=== PATIENT | female | born 1955 | race Caucasian/White ===

== ENCOUNTER → 2017-04-16 | Outpatient (CLI) | payer OTHER ==
[~2017-04-16] MED LIST: ACET325 PO; ACET500 PO; ALL DAY ALLERGY10 MG PO; ALLER-TEC D 5-1 EACH PO; ALLER-TEC PO; AMIT10; AMIT25 PO; AMOCLA875 PO; ASPI325 PO; ASPI81CH PO; BLOOD PRESSURE MED; CARV25 PO; CLON.1 PO; CLON.2 PO; CLOP75; CYCL10 PO; Colace100 MG PO; DILT120 PO; DILT30 PO; DILTIAZEM 24HR120 MG PO; ELIQUIS5 MG; ERGO50000 PO; FISH PO; FISH1000 PO; FLAX PO; FLAXSEED PO; FLUC100; Flagyl500 MG PO; HYDACE5 PO; HYDACE7.5 PO; IBUP800 PO; LISI20 PO; LISI5 PO; LUKAID GLA1 GM/1 ML PO; Lisinopril2.5 MG PO; METO50; NAPR500 PO; Naprosyn500 MG PO; OMEP20ER PO; OMEP40CA12 PO; OXYC5 PO; PRAV20 PO; PROM25 PO; Percocet 5-3251 EACH PO; RXLORA1 PO; RXPROM25 PO; Stool Softener100 MG PO; TRAM50 PO; VENL37.5ER PO; XARELTO20 MG PO; Zofran Odt8 MG SL; [UNRECOGNIZED DRUG - OTHER] PO; [UNRECOGNIZED DRUG - OTHER] PO; [UNRECOGNIZED DRUG - OTHER] PO
[2017-04-16 18:55] LABS: BASOPHILS ABSOLUTE AUTO 0.03 K/mm3 (0.00-0.23); BASOPHILS PERCENT AUTO 0 % (0-2); EOSINOPHILS ABSOLUTE AUTO 0.24 K/mm3 (0.00-0.68); EOSINOPHILS PERCENT AUTO 3 % (0-6); Hematocrit 35.5 % (33.0-51.0); Hemoglobin 11.8 g/dL (11.5-16.0); IMMATURE GRAN ABSOLUTE AUTO 0.01 K/mm3 (0.00-0.10); IMMATURE GRAN PERCENT AUTO 0 % (0-1); LYMPHOCYTES ABSOLUTE AUTO 2.18 K/mm3 (0.84-5.20); LYMPHOCYTES PERCENT AUTO 22 % (21-46); MONOCYTES ABSOLUTE AUTO 0.49 K/mm3 (0.16-1.47); MONOCYTES PERCENT AUTO 5 % (4-13); Mean Corpuscular HGB 30.3 pg (26.0-34.0); Mean Corpuscular HGB Conc 33.2 g/dL (31.5-36.5); Mean Corpuscular Volume 91 fL (80-100); Mean Platelet Volume 11.2 fL (9.1-12.4); NEUTROPHILS ABSOLUTE AUTO 6.79 K/mm3 (1.96-9.15); NEUTROPHILS PERCENT AUTO 70 % (41-73); Platelet Count 356 K/mm3 (150-400); RDW Coefficient Variation 13.9 % (11.7-14.2); RDW Standard Deviation 46.1 fL (35.1-46.3); Red Blood Cell Count 3.89 M/mm3 (3.80-5.20); White Blood Cell Count 9.74 K/mm3 (4.00-11.30)
[2017-04-16 19:15] LABS: Free Thyroxine 1.03 ng/dL (0.70-1.60); LDL/HDL RATIO 1.1; Very Low Density Lipoprot Chol 20 mg/dL (6-32)
[2017-04-16 19:19] LABS: Alanine Aminotransfer (ALT/SGP 63 U/L (12-78); Alk Phos 164 U/L (50-136); Anion Gap 9 mmol/L (6-16); Aspartate Aminotrans (AST/SGOT 31 U/L (12-37); Bilirubin, Total 0.6 mg/dL (0.1-1.0); Blood Urea Nitrogen 25 mg/dL (8-24); Bun/Creatinine Ratio 25.3 (12.0-20.0); CHOL/HDL RATIO 2.4; CO2, Blood 26 mmol/L (21-32); Calcium, Blood 9.6 mg/dL (8.5-10.1); Chloride, Blood 103 mmol/L (98-108); Cholesterol 219 mg/dL (50-200); Creatinine, Blood 0.99 mg/dL (0.40-1.00); Globulin, Blood 4.2 g/dL (2.2-4.0); Glomerular Filtration Rate >60 (60-); Glucose, Blood 94 mg/dL (70-99); HDL Cholesterol 93 mg/dL (>39); Low Density Lipoprotein Chol 106 mg/dL (0-110); Potassium, Blood 4.4 mmol/L (3.5-5.5); Sodium, Blood 138 mmol/L (136-145); Thyroid Stimulating Hormone 0.856 uIU/mL (0.360-4.800); Total Protein, Blood 8.2 g/dL (6.4-8.2); Triglycerides 100 mg/dL (30-160)
== END | disposition home or self-care (01) ==
LOC: LAB 09:27
PROVIDERS: Nurse Practitioner Adult Health
DX: D64.9 Anemia, unspecified (principal); I10 Essential (primary) hypertension; I48.0 Paroxysmal atrial fibrillation; E78.5 Hyperlipidemia, unspecified
CPT/HCPCS: 80053; 80061; 84439; 84443; 85025

== ENCOUNTER → 2017-11-09 | Outpatient (CLI) | payer OTHER ==
[2017-11-09 18:01] LABS: BASOPHILS ABSOLUTE AUTO 0.03 K/mm3 (0.00-0.23); BASOPHILS PERCENT AUTO 1 % (0-2); EOSINOPHILS ABSOLUTE AUTO 0.26 K/mm3 (0.00-0.68); EOSINOPHILS PERCENT AUTO 4 % (0-6); Hemoglobin 11.5 g/dL (11.5-16.0); IMMATURE GRAN ABSOLUTE AUTO 0.01 K/mm3 (0.00-0.10); IMMATURE GRAN PERCENT AUTO 0 % (0-1); LYMPHOCYTES ABSOLUTE AUTO 1.83 K/mm3 (0.84-5.20); LYMPHOCYTES PERCENT AUTO 31 % (21-46); MONOCYTES ABSOLUTE AUTO 0.35 K/mm3 (0.16-1.47); MONOCYTES PERCENT AUTO 6 % (4-13); Mean Corpuscular HGB 30.1 pg (26.0-34.0); Mean Corpuscular HGB Conc 33.8 g/dL (31.5-36.5); Mean Corpuscular Volume 89 fL (80-100); Mean Platelet Volume 12.1 fL (9.1-12.4); NEUTROPHILS ABSOLUTE AUTO 3.39 K/mm3 (1.96-9.15); NEUTROPHILS PERCENT AUTO 58 % (41-73); Platelet Count 275 K/mm3 (150-400); RDW Coefficient Variation 13.6 % (11.7-14.2); RDW Standard Deviation 44.6 fL (35.1-46.3); Red Blood Cell Count 3.82 M/mm3 (3.80-5.20); White Blood Cell Count 5.87 K/mm3 (4.00-11.30)
[2017-11-09 19:56] LABS: Albumin, Blood 4.1 g/dL (3.4-5.0); Albumin/Globulin Ratio 1.2 (0.8-1.8); Bilirubin, Total 0.3 mg/dL (0.1-1.0); Bun/Creatinine Ratio 19.1 (12.0-20.0); Calcium, Blood 9.1 mg/dL (8.5-10.1); Creatinine, Blood 1.15 mg/dL (0.40-1.00); Globulin, Blood 3.4 g/dL (2.2-4.0); Potassium, Blood 4.5 mmol/L (3.5-5.5); Total Protein, Blood 7.5 g/dL (6.4-8.2)
== END ==
LOC: LAB 14:11 → LAB SHORT 14:11
PROVIDERS: Nurse Practitioner Adult Health
DX: M19.071 Primary osteoarthritis, right ankle and foot (principal); R74.8 Abnormal levels of other serum enzymes
CPT/HCPCS: 80053; 85025

== ENCOUNTER 2018-06-01 10:14 | Day surgery (SDC) | payer OTHER ==
[~2018-06-01] VITALS: Ht 160 cm; Wt 92.1 kg
[2018-06-01] MEDS ORDERED: ATOR10 (10:30)
[2018-06-01] MEDS ORDERED: ATOR10 PO (10:30)
== END 2018-06-01 11:38 | disposition home or self-care (01) ==
LOC: ORSCSDS 10:14
PROVIDERS: Anesthesiology
PROC: 3E0R33Z Introduction of Anti-inflammatory into Spinal Canal, Percutaneous Approach (ICD-10-PCS; principal; 2018-06-01 11:15)
DX: M54.16 Radiculopathy, lumbar region (principal); M48.061 Spinal stenosis, lumbar region without neurogenic claudication; I10 Essential (primary) hypertension; E78.00 Pure hypercholesterolemia, unspecified; E78.5 Hyperlipidemia, unspecified; Z87.891 Personal history of nicotine dependence; Z79.01 Long term (current) use of anticoagulants; Z79.899 Other long term (current) drug therapy
CPT/HCPCS: J1040

== ENCOUNTER → 2018-06-08 | Outpatient (CLI) | payer OTHER ==
[~2018-06-08] MED LIST changes: +ATOR10; +ATOR10 PO
[2018-06-08 19:42] LABS: Albumin, Blood 4.1 g/dL (3.4-5.0); Albumin/Globulin Ratio 1.1 (0.8-1.8); Bilirubin, Total 0.7 mg/dL (0.1-1.0); Calcium, Blood 8.4 mg/dL (8.5-10.1); Globulin, Blood 3.7 g/dL (2.2-4.0); Potassium, Blood 4.4 mmol/L (3.5-5.5); Total Protein, Blood 7.8 g/dL (6.4-8.2)
== END ==
LOC: LAB 17:33 → LAB SHORT 17:33
PROVIDERS: Nurse Practitioner Family
DX: I10 Essential (primary) hypertension (principal)
CPT/HCPCS: 80053

== ENCOUNTER 2018-06-26 15:47 | Inpatient (IN) | payer OTHER ==
[~2018-06-26] VITALS: Ht 160 cm; Wt 88.1 kg
[2018-06-26 16:33] LABS: BASOPHILS ABSOLUTE AUTO 0.03 K/mm3 (0.00-0.23); BASOPHILS PERCENT AUTO 0 % (0-2); EOSINOPHILS ABSOLUTE AUTO 0.04 K/mm3 (0.00-0.68); EOSINOPHILS PERCENT AUTO 0 % (0-6); Hematocrit 34.9 % (33.0-51.0); Hemoglobin 11.8 g/dL (11.5-16.0); IMMATURE GRAN ABSOLUTE AUTO 0.05 K/mm3 (0.00-0.10); IMMATURE GRAN PERCENT AUTO 0 % (0-1); LYMPHOCYTES ABSOLUTE AUTO 2.07 K/mm3 (0.84-5.20); LYMPHOCYTES PERCENT AUTO 16 % (21-46); MONOCYTES ABSOLUTE AUTO 0.84 K/mm3 (0.16-1.47); MONOCYTES PERCENT AUTO 7 % (4-13); Mean Corpuscular HGB 31.7 pg (26.0-34.0); Mean Corpuscular HGB Conc 33.8 g/dL (31.5-36.5); Mean Corpuscular Volume 94 fL (80-100); Mean Platelet Volume 11.7 fL (9.1-12.4); NEUTROPHILS ABSOLUTE AUTO 9.73 K/mm3 (1.96-9.15); NEUTROPHILS PERCENT AUTO 76 % (41-73); Platelet Count 234 K/mm3 (150-400); RDW Coefficient Variation 13.7 % (11.7-14.2); RDW Standard Deviation 46.7 fL (35.1-46.3); Red Blood Cell Count 3.72 M/mm3 (3.80-5.20); White Blood Cell Count 12.76 K/mm3 (4.00-11.30)
[2018-06-26 16:51] LABS: International Normalized Ratio 0.97; Prothrombin Time Results 10.3 Sec (9.7-11.5)
[2018-06-26 16:55] LABS: Albumin/Globulin Ratio 1.1 (0.8-1.8); Bilirubin, Total 0.3 mg/dL (0.1-1.0); Bun/Creatinine Ratio 22.9 (12.0-20.0); Calcium, Blood 8.5 mg/dL (8.5-10.1); Creatinine, Blood 1.09 mg/dL (0.40-1.00); Globulin, Blood 3.6 g/dL (2.2-4.0); Potassium, Blood 4.1 mmol/L (3.5-5.5); Total Protein, Blood 7.6 g/dL (6.4-8.2)
[2018-06-26] MEDS ORDERED: ELIQUIS5 MG PO (16:56)
[2018-06-26 17:18] LABS: Troponin I 0.956 ng/mL (0.000-0.040)
[2018-06-27 01:30] LABS: Mean Platelet Volume 11.6 fL (9.1-12.4); Platelet Count 231 K/mm3 (150-400)
[2018-06-27 01:45] LABS: International Normalized Ratio 0.97; Prothrombin Time Results 10.3 Sec (9.7-11.5)
[2018-06-27 07:19] LABS: BASOPHILS ABSOLUTE AUTO 0.03 K/mm3 (0.00-0.23); BASOPHILS PERCENT AUTO 0 % (0-2); EOSINOPHILS ABSOLUTE AUTO 0.06 K/mm3 (0.00-0.68); EOSINOPHILS PERCENT AUTO 1 % (0-6); Hematocrit 36.2 % (33.0-51.0); Hemoglobin 11.5 g/dL (11.5-16.0); IMMATURE GRAN ABSOLUTE AUTO 0.02 K/mm3 (0.00-0.10); IMMATURE GRAN PERCENT AUTO 0 % (0-1); LYMPHOCYTES PERCENT AUTO 25 % (21-46); MONOCYTES ABSOLUTE AUTO 0.54 K/mm3 (0.16-1.47); MONOCYTES PERCENT AUTO 6 % (4-13); Mean Corpuscular HGB 30.9 pg (26.0-34.0); Mean Corpuscular HGB Conc 31.8 g/dL (31.5-36.5); Mean Platelet Volume 11.8 fL (9.1-12.4); NEUTROPHILS ABSOLUTE AUTO 6.09 K/mm3 (1.96-9.15); NEUTROPHILS PERCENT AUTO 67 % (41-73); Platelet Count 195 K/mm3 (150-400); RDW Standard Deviation 49.4 fL (35.1-46.3); Red Blood Cell Count 3.72 M/mm3 (3.80-5.20); White Blood Cell Count 9.04 K/mm3 (4.00-11.30)
[2018-06-27 07:31] LABS: Mean Corpuscular Volume 97 fL (80-100)
[2018-06-27 07:40] LABS: Alanine Aminotransfer (ALT/SGP 27 U/L (12-78); Albumin, Blood 3.7 g/dL (3.4-5.0); Albumin/Globulin Ratio 1.1 (0.8-1.8); Alk Phos 76 U/L (50-136); Anion Gap 9 mmol/L (6-16); Aspartate Aminotrans (AST/SGOT 15 U/L (12-37); Bilirubin, Total 0.8 mg/dL (0.1-1.0); Blood Urea Nitrogen 21 mg/dL (8-24); Bun/Creatinine Ratio 22.3 (12.0-20.0); CO2, Blood 21 mmol/L (21-32); Calcium, Blood 8.4 mg/dL (8.5-10.1); Chloride, Blood 112 mmol/L (98-108); Creatinine, Blood 0.94 mg/dL (0.40-1.00); Globulin, Blood 3.3 g/dL (2.2-4.0); Glomerular Filtration Rate >60 (60-); Glucose, Blood 103 mg/dL (70-99); Potassium, Blood 4.4 mmol/L (3.5-5.5); Sodium, Blood 142 mmol/L (136-145)
--- NOTE | 2018-06-27 12:49 | NUR ---
ECHOCARDIOGRAM COMPLETED
--- NOTE | 2018-06-27 16:40 | NUR ---
PATIENT ADMITTED FROM ER FOR CHEST PAIN. PATIENT HAS NOT REQUESTED PAIN MEDS THIS SHIFT. SHE IS ALERT AND ORIENTED AND INDEPENDENT IN THE ROOM. SHE HAS RESTED MOST OF THE SHIFT. CALL LIGHT WITHIN REACH.
--- NOTE | 2018-06-28 06:35 | NUR ---
SHIFT SUMMARY PT A/O. INDEPENDENT TO BA. NO C/O CP JUST SAYS SHE HAS SOME CP OCCASIONALLY C ACTIVITY. ON HEPARIN DRIP. HR A FIB IN 120'S DR CHILDS ORDERED PRN METOPROLOL 15MG PO FOR HR >110. SHE GOT A DOSE AND HR CAME DOWN TO A FIB 102. REFUSED SYED HOSE. SHE WAS ABLE TO SLEEP T/O NOC. CALL LIGHT IN REACH
--- NOTE | 2018-06-28 08:00 | NUR ---
PATIENT HR CLIMBING INTO THE 180'S AND SHE IS SOB. A-FIB ON TELEMETRY. NOTIFIED DR. VEGAS AND DR. QUILES WHO ORDERED AND AMIODORONE BOLUS AND GTT. CHARGE NURSE MARISELA NOTIFIED AND PATIENT WILL BE TRANSFERRING TO ICU 1.
--- NOTE | 2018-06-28 08:35 | NUR ---
PATIENT TRANSFERRED TO ICU PER DR. QUILES ORDER. REPORT GIVEN TO TEE MONIQUE.
--- NOTE | 2018-06-28 08:50 | NUR ---
ASSUMED CARE: REPORT RECIEVED FROM TEE RAMIREZ. PT IS ALERT AND ORIENTED. HR IN 130S. STATES SHE FEELS SOB BUT NO CP. FRIEND AT BEDSIDE. AWAITING AMIODORONE GTT FROM PHARMACY.
--- NOTE | 2018-06-28 15:50 | NUR ---
DR HAND NOTIFIED DUE TO PT BEING UNABLE TO VOID. BLADDER SCAN REVEALS 400 IN. ORDER FOR STRAIGHT CATH ONE TIME.
--- NOTE | 2018-06-28 18:06 | NUR ---
SHIFT SUMMARY: PT RESTING IN BED, SON AT BEDSIDE. PLAN IS FOR ANGIO TOMORROW. PT EATING DINNER. AMIODORONE RUNNING, RATE CHECKED WITH MONIKA OLIVEIRA. HR AFIB IN 80S-90S UNLESS ACTIVITY, THEN JUMPS INTO 120S. STATES SHE HAD OCCASIONAL CHEST PAIN/PRESSURE. DENIES PAIN OR CONCERNS AT THIS TIME.
--- NOTE | 2018-06-28 21:46 | NUR ---
PATIENT RESTING IN BED NO C/O CHEST PAIN AT THIS TIME, C/O LOW BACK PAIN GIVEN TYLENOL WITH VERY LITTLE RELIEF. PATIENT UP AMB TO TOILET UNABLE TO URINATE, C/O SLIGHT SOB WITH ACTIVITY AND HR UP TO 110'S PATIENT VERBALIZED THE RATE WAS HIGHER EARLIER TODAY. AMIODARONE IV DRIP AND HEPARIN DRIP CONTINUE. HEPARIN DRIP ADJUSTED PER PHARMACY SEE EMAR.
[2018-06-29 05:31] LABS: BASOPHILS ABSOLUTE AUTO 0.02 K/mm3 (0.00-0.23); BASOPHILS PERCENT AUTO 0 % (0-2); EOSINOPHILS PERCENT AUTO 2 % (0-6); Hematocrit 39.3 % (33.0-51.0); Hemoglobin 13.1 g/dL (11.5-16.0); IMMATURE GRAN ABSOLUTE AUTO 0.01 K/mm3 (0.00-0.10); IMMATURE GRAN PERCENT AUTO 0 % (0-1); LYMPHOCYTES ABSOLUTE AUTO 2.19 K/mm3 (0.84-5.20); LYMPHOCYTES PERCENT AUTO 32 % (21-46); MONOCYTES ABSOLUTE AUTO 0.43 K/mm3 (0.16-1.47); MONOCYTES PERCENT AUTO 6 % (4-13); Mean Corpuscular HGB 30.5 pg (26.0-34.0); Mean Corpuscular HGB Conc 33.3 g/dL (31.5-36.5); Mean Platelet Volume 11.7 fL (9.1-12.4); NEUTROPHILS PERCENT AUTO 59 % (41-73); Platelet Count 233 K/mm3 (150-400); RDW Coefficient Variation 13.3 % (11.7-14.2); RDW Standard Deviation 44.7 fL (35.1-46.3); White Blood Cell Count 6.75 K/mm3 (4.00-11.30)
[2018-06-29 05:33] LABS: Mean Corpuscular Volume 91 fL (80-100)
[2018-06-29 05:50] LABS: Albumin, Blood 3.7 g/dL (3.4-5.0); Anion Gap 8 mmol/L (6-16); Blood Urea Nitrogen 20 mg/dL (8-24); Bun/Creatinine Ratio 19.4 (12.0-20.0); CO2, Blood 23 mmol/L (21-32); Calcium, Blood 8.6 mg/dL (8.5-10.1); Chloride, Blood 108 mmol/L (98-108); Creatinine, Blood 1.03 mg/dL (0.40-1.00); Glomerular Filtration Rate 57 (60-); Glucose, Blood 152 mg/dL (70-99); Phosphorus, Blood 4.1 mg/dL (2.5-4.9); Potassium, Blood 3.9 mmol/L (3.5-5.5); Sodium, Blood 139 mmol/L (136-145)
--- NOTE | 2018-06-29 07:23 | NUR ---
SUMMARY PATIENT RESTING IN BED NO C/O CHEST PAIN. C/O LOW BACK PAIN DUE TO BEING IN BED, MEDICATED WITH TYLENOL X1. BUSINESS SERVICES ANALYST CONTINUES TO SHOW AFIB WITH HR 90'S AMIODARONE CONTINUES AT 0.5MG/HR. PATIENT UP TO TOILET HAVING DIFFICULTY VOIDING. PATIENT VERBALIZED THAT IT FELT EASIER TO VOID THE LAST TIME UP TO TOILET. PATIENT AMBULATING IN ROOM WITH MIN ASSIST
--- NOTE | 2018-06-29 08:00 | NUR ---
INITIAL ASSESSMENT PATIENT SLEEPING SOUNDLY IN BED UPON ENTERING ROOM. PATIENT ALERT AND ORIENTED X 4, AFEBRILE. PATIENT STATES THAT SHE HAS SOME DISCOMFORT IN HER L WRIST AND THAT IT IS A OLD IV SITE. PATIENT STATES THAT PAIN IS MANAGEABLE AND REQUESTS AN ICE PACK FOR SITE. PATIENT STEADY ON FEET; SBA FOR LINES/ CORDS. PATIENT SATTING WELL ON RA. LUNGS CLEAR THROUGHOUT. PATIENT IN A. FIB. HR 90, BP STABLE. PULSES STRONG. NO EDEMA NOTED. GI WNL. LAST BM YESTERDAY. PATIENT VOIDING YELLOW URINE. PATIENT STATES THAT SHE HAS BEEN HAVING SOME RETENTION AND PROBLEMS TAKING LONGER THAN USUAL TO VOID HERE. AMIODARONE INFUSING AT 0.5 MG/ MINUTE, HEPARIN INFUSING AT 21 UNITS/ KG/ HOUR. BED LOW, CALL LIGHT IN REACH. WILL CONTINUE TO MONITOR PATIENT FREQUENTLY THROUGHOUT SHIFT.
--- NOTE | 2018-06-29 12:46 | NUR ---
PATIENT COMPLAINED OF CHEST PAIN, DESCRIBED SHARP AND TIGHT FEELING, AFTER NURSE TRIED TO PLACE IV. NURSE SPOKE WITH DR. HAND AT 1107 AND INFORMED OF PATIENT COMPLAINT. ORDERED PRN NITRO. PATIENT GIVEN PRN NITRO X [address] HAND CALLED BACK AND INFORMED. DR. HAND STATED TO CALL DR. QUILES AND INFORM ABOUT CHEST PAIN, THAT THERE WAS NO RELIEF WITH PRN NITRO X 3 DOSES AND QUESTION WHEN PATIENT WOULD BE GOING TO FLEX O WRITER OPERATOR TODAY. DR. QUILES CALLED AT 1205. RNJUANITA ANSWERED FOR DR. QUILES AND CALLED BACK SAYING THAT DR. QUILES WAS IN THE MIDDLE OF A PROCEDURE AND TO REFER BACK TO DR. HAND. DR. HAND CALLED ONCE AGAIN AND INFORMED THAT NURSE UNABLE TO GET IN TOUCH WITH CARDIOLOGY. ORDERED FOR PRN ATIVAN TO BE GIVEN. PATIENT REPORTS THAT CHEST PAIN IS LESSENING AND IS NOW A 4/ 10 INSTEAD OF A 6/ 10. WILL CONTINUE TO MONITOR.
--- NOTE | 2018-06-29 12:52 | NUR ---
PATIENT RESTING QUIETLY IN BED. PATIENT REMAINS AFEBRILE. PATIENT STATES THAT CHEST PAIN IS IMPROVING AFTER PRN ATIVAN. PATIENT REMAINS SATTING WELL ON RA. HR 95. BP STABLE. PATIENT REMAINS IN A. FIB. GI REMAINS WNL. NO CHANGE IN . NO CHANGE IN SKIN. PATIENT REMAINS NPO FOR BOWSTRING MAKER PROCEDURE. WILL CONTINUE TO MONITOR.
--- NOTE | 2018-06-29 13:37 | NUR ---
PATIENT REPORTS "CHEST PAIN IS GONE". PATIENT BEING TAKEN TO FURNACE ROASTER AT THIS TIME.
--- NOTE | 2018-06-29 14:48 | NUR ---
PATIENT BACK FROM GRAPHICS SOFTWARE ENGINEER. REPORT RECEIVED THAT THERE WERE NO FINDINGS. TR BAND IN PLACE TO R WRIST WITH 8 CC OF AIR INSTILLED. PATIENT HAS NO COMPLAINTS. HEPARIN REMAINS INFUSING. WILL CONTINUE TO MONITOR.
--- NOTE | 2018-06-29 17:01 | NUR ---
PATIENT RESTING QUIETLY IN BED. PATIENT HAS NO COMPLAINTS OF PAIN OR DISCOMFORT. PATIENT AFEBRILE. VSS. 2 CC AIR LET OUT OF TR BAND. SITE REMAINS WNL- NO BLEEDING, BRUISING, OR HEMATOMA NOTED. NO OTHER ACUTE CHANGES TO NOTE ON AT THIS TIME. WILL CONTINUE TO MONITOR.
--- NOTE | 2018-06-29 18:26 | NUR ---
2 CC AIR REMOVED FROM TR BAND- 4 TOTAL IN BAND AT THIS TIME. SITE WNL. WILL CONTINUE TO MONITOR.
--- NOTE | 2018-06-29 18:48 | NUR ---
SHIFT SUMMARY PATIENT REMAINED ALERT AND ORIENTED T/O SHIFT. PATIENT REMAINED AFEBRILE. PATIENT COMPLAINED OF SOME DISCOMFORT IN L WRIST WHERE OLD IV WAS DURING SHIFT. PATIENT ALSO COMPLAINED OF "SHARP, TIGHTENING" CHEST PAIN OT DURING SHIFT- NITRO GIVEN X 3 WITH NO RELIEF- PATIENT REPORTED RELIEF WITH PRN IV ATIVAN. PATIENT SBA TO TOILET. PATIENT REMAINED SATTING WELL ON RA. LUNGS REMAINED CLEAR T/O. PATIENT REMAINED IN A. FIB, HR MOSTLY 80S TO 90S. HR INCREASED UP TO THE 130S AT TIMES WHEN AMBULATING TO THE TOILET. BP REMAINED STABLE. PULSES REMAINED STRONG. NO EDEMA NOTED. GI WNL. PATIENT EXPERIENCING SOME URINARY RETENTION AT THE BEGINNING OF THE SHIFT- PATIENT IS HAVING NO TROUBLE VOIDING NOW. PATIENT WENT TO HUSBANDRY PERSON THIS SHIFT- NO FINDINGS/ NO INTERVENTIONS DONE. TR BAND REMAINS TO RIGHT WRIST- 4 CC AIR REMAINS INSTILLED. NO BLEEDING/ BRUISING/ HEMATOMA NOTED. HEPARIN INFUSING AT 22 UNITS/ KG/ HOUR. PATIENT DID TOLERATE DINNER WELL. PATIENT HAS NO COMPLAINTS AT THIS TIME. BED LOW, CALL LIGHT IN REACH. WILL CONTINUE TO MONITOR FREQUENTLY UNTIL REPORT GIVEN TO ONCOMING PEAT SHREDDER TENDER NURSE SHORTLY.
--- NOTE | 2018-06-29 19:05 | NUR ---
ASSUME CARE: REPORT RECIEVED FROM NAVID OFF GOING RN. LIVIA GRAY SHOWING A FLUTTER. HEART RATE 90'S-100'S. CO "CHEST PAIN" "BUT NOT LIKE IT WAS BEFORE" MEDICATED WITH ATIVAN 1 MG IV. "IT WORKED REALLY WELL BEFORE." LUNG SOUNDS CLEAR, RESPIRATIONS REGULAR AND EASY ON ROOM AIT. SPO2 96-98%. ABDOMEN SOFT WITH BOWEL SOUNDS FOUR QUADS. REPOSITIONS SELF IN BED. TR BAND 2CC AIR REALEASED SITE CLEAR. CONTINUE TO MONITOR AND REPORT CHANGE IN PATIENT CONDITION.
--- NOTE | 2018-06-30 06:15 | NUR ---
SHIFT SUMMARY: RESTS QUIETLY WHEN UNDISTURBED. MONITOR INTACT SHOWING A FLUTTER HEART RATE 80S-100'S. LUNG SOUNDS CLEAR RESPIRATIONS REGULAR AND EASY AT REST. ABDOMEN SOFT WITH BOWEL SOUNDS FOUR QUADS. TR BAND SITE CLEAR WITH OCCLUSIVE DRESSING INTACT. GAIT STEADY TO TOILET STEADY WITH STANDBY ASSIST TO ASSIST WITH CORDS AND WIRES. REFUSES TO USE SPECIPAN SO UNABLE TO OBTAIN ACCURATE URINE OUTPUT. CONTINUE TO MONITOR AND REPORT CHANGE IN PATIENT CONDITION
--- NOTE | 2018-06-30 07:30 | NUR ---
ASSUMED CARE PT. ALERT AND ORIENTED THIS AM. PT. RESTING COMFORTABLY IN BED. MOVES SELF INDEPENDENTLY IN BED. PT. REPORTS SOME CHEST PAIN THIS AM. PT DESCRIBES PAIN "DISCOMFORT"THAT "COMES AND GOES", PT STATES "WE FOUND ATIVAN IS THE ONLY THING THAT MAKES THE PAIN GO AWAY". PT. HAS ARM BOARD IN PLACE TO RIGHT WRIST, WITH CLEAR OCCLUSIVE DRESSING IN PLACE TO RIGHT WRIST CATH INSERTION SITE. PT. VSS THIS AM. NADN. HEPARIN GTT INFUSING. CALL LIGHT IN REACH.
--- NOTE | 2018-06-30 17:36 | NUR ---
SHIFT SUMMARY PT. REMAINS ALERT AND ORIENTED T/O DAY, VSS. PT. WAS GIVEN A 250ML FLUID BOLUS PER DR. HUBBARD FOR HYPOTENSION. PT. SLEEPING AND RESTING T/O DAY. PT DID REPORT ONE EPISODE OF CHEST PAIN TODAY HOWEVER IT WAS RELIEVED BY ATIVAN ADMIN. PT. CHANGED TO MEDICAL FLOOR STATUS TODAY. ANDREWSN. REPORT TO ONCOMING RN.
--- NOTE | 2018-06-30 22:07 | NUR ---
ASSUMING CARE RECEIVED PT REPORT FROM TEE CROSS. PT IS ALERT AND OREINTED AT THIS TIME. PT IS ADMITTED DUE TO CHEST PAIN AND ELEVATED TROPONINS. PT HAD AND ANGIOCATH PROCEDURE WITH RIGHT RADIAL ACCESS. PT TR BAND IS REMOVED AND A TRANSPARENT DRESSING IS IN PLACE. TRANSPARENT DRESSING IN CDI AT THIS TIME WITH NO SWELLING, BRUISING, OR HEMATOMA NOTED. PT IS NOT REPORTING ANY NUMBNESS OR TINGLING OF THE RIGHT EXTREMITY. ARM BOARD REMAINS IN PLACE. PT IS REPORTING SOME MINOR CHEST PAIN THAT IS RELEIVED WITH ATIVAN. PT IS REPORTING SOME ANXIETY AND THAT CHEST PAIN APPEARS TO INCREASE WITH ANXIETY. PT IS ON ROOM AIR WITH CLEAR LUNG SOUNDS THROUGHOUT. PT APPEARS TO BE IN A-FIB WITH A HR IN THE 90-100'S AT THIS TIME. PT BP APPEARS TO BE STABLE. PT IS ABLE TO REPOSTION SELF AND AMBULATE WITH NO ASSISTANCE IN THE ROOM. PT IS SALINE LOCKED AT THIS TIME. ASSUMING CARE OF PT AT THE TIME OF SHIFT REPORT. WILL CONTINUE TO MONITOR PT.
[2018-07-01 04:01] LABS: BASOPHILS ABSOLUTE AUTO 0.02 K/mm3 (0.00-0.23); BASOPHILS PERCENT AUTO 0 % (0-2); EOSINOPHILS ABSOLUTE AUTO 0.13 K/mm3 (0.00-0.68); EOSINOPHILS PERCENT AUTO 2 % (0-6); Hematocrit 37.2 % (33.0-51.0); Hemoglobin 12.3 g/dL (11.5-16.0); IMMATURE GRAN ABSOLUTE AUTO 0.02 K/mm3 (0.00-0.10); IMMATURE GRAN PERCENT AUTO 0 % (0-1); LYMPHOCYTES ABSOLUTE AUTO 2.28 K/mm3 (0.84-5.20); LYMPHOCYTES PERCENT AUTO 34 % (21-46); MONOCYTES PERCENT AUTO 8 % (4-13); Mean Corpuscular HGB 30.9 pg (26.0-34.0); Mean Corpuscular HGB Conc 33.1 g/dL (31.5-36.5); Mean Platelet Volume 11.6 fL (9.1-12.4); NEUTROPHILS ABSOLUTE AUTO 3.73 K/mm3 (1.96-9.15); NEUTROPHILS PERCENT AUTO 56 % (41-73); Platelet Count 223 K/mm3 (150-400); RDW Coefficient Variation 13.5 % (11.7-14.2); RDW Standard Deviation 46.1 fL (35.1-46.3); Red Blood Cell Count 3.98 M/mm3 (3.80-5.20); White Blood Cell Count 6.68 K/mm3 (4.00-11.30)
[2018-07-01 04:02] LABS: Mean Corpuscular Volume 94 fL (80-100)
[2018-07-01 04:19] LABS: Bun/Creatinine Ratio 24.5 (12.0-20.0); Calcium, Blood 8.7 mg/dL (8.5-10.1); Creatinine, Blood 1.1 mg/dL (0.40-1.00); Potassium, Blood 4.4 mmol/L (3.5-5.5)
--- NOTE | 2018-07-01 05:40 | NUR ---
SHIFT SUMMARY NOTE PT HAS REMAINED ALERT AND ORIENTED THROUGHOUT THE NIGHT WHILE AWAKE. PT HAS SLEPT THROUGH MOST OF THE NIGHT. PT REPORTED SOME MINOR CHEST PAIN AT APPROX 2/10 AT THE START OF SHIFT. PT WAS PROVIDED ATIVAN WITH REPORTED RELEIF. PT STATED THAT SHE HAS BEEN HAVING CHEST PAIN WHEN SHE BECOMES ANXIOUS. AFTER ADMINISTRATION OF ATIVAN AT THE BEGINING OF SHIFT PT HAS HAD NO FURTHER COMPLAINTS OF CHEST PAIN OR ANXIETY. PT HAS REMIANED ON ROOM AIR THROUGHOUT THE NIGHT, PT HAS HAD SPO2 IN THE 98-100 RANGE WITH SPO2 CHECKS. PT HAS REMAINED IN A-FIB THROUGHOUT THE NIGHT. PT HR IS IN THE 70-80'S WHILE AT REST PT HR HAS OCCASIONALLY BEEN NOTED TO BE IN THE 90-100 RANGE AT TIMES. PT BP HAS REMAINED STABLE THROUGH THE NIGHT IN THE LOW 100'S. PT HAS BEEN ABLE TO AMBULATE IN THE ROOM WITHOUT ASSISTANCE. PT IS ABLE TO USE CALL LIGHT APPROPRIATELY AND IS ABLE TO MAKE NEEDS KNOWN. PT HAS REMAINED SALINE LOCKED THROUGHOUT THE NIGHT. PT RIGHT RADIAL ACCESS SITE CONTINUES TO HAVE TRANSPARENT DRESSING IN PLACE. NO SIGN OF SWELLING, BRUISING, OR HEMATOMA NOTED. PT DENIES ANY NUMBNESS OR TINGLING OF DISTAL EXTREMITY. PT REQUESTED TO HAVE 0600 OMEPRAZOL HELD UNTIL BREAKFAST. [facility].
--- NOTE | 2018-07-01 07:25 | NUR ---
ASSUMED CARE PT ALERT AND ORIENTED THIS AM.PT. VSS THIS AM. PT DENIES ANY CHEST PAIN OR PRESSURE. REPORTS SOME CHEST PAIN LAST NIGHT THAT WAS RELIEVED BY ATIVAN ADMIN. PT. INDEPENDENT IN ROOM. PT CURRENTLY SALINE LOCKED. VSS. NADN. CALL LIGHT IN REACH.
--- NOTE | 2018-07-01 09:50 | NUR ---
BATH OFFERED TO PT. PT. REPORTS SHE WOULD LIKE TO WAIT FOR BATH AT THIS TIME, FOR POSSIBLE DISCHARGE TODAY.
--- NOTE | 2018-07-01 17:48 | NUR ---
SHIFT SUMMARY PT. REMAINS ALERT AND ORIENTED. PT. VSS T/O SHIFT. PLANS FOR D/C TOMORROW. INDEPENDENT IN ROOM. REPORT TO ONCOMING RN.
--- NOTE | 2018-07-01 22:00 | NUR ---
ASSUMING CARE AND PT TRANSFER RECEIVED PT REPORT FROM TEE CROSS. PT IS ALERT AND ORIENTED AT THIS TIME. PT IS INDEPENDENT IN THE ROOM AND ABLE TO MAKE NEEDS KNOWN. PT IS ON ROOM AIR WITH SPO2 IN THE HIGH 90'S. PT LUNG SOUNDS ARE CLEAR. PT IS IN A-FIB AT THIS TIME WITH A RATE IN THE 90-100'S. PT BP IS STABLE AT THIS TIME. PT IS REPORTING SOME CHEST PAIN. PT PROVIDED SOME ATIVAN WITH REPORTED RELEIF. PT REPORT GIVEN TO TEE BELLAMY ON SURGICAL FLOOR. PT TRANSFERED TO ROOM 208 BY ANTHONY TORRES. PT TRANSFERED WITH ALL BELONGINGS VIA WHEEL CHAIR AT APPROX 2220.
--- NOTE | 2018-07-01 22:31 | NUR ---
ARRIVES TO ROOM 208 FROM ICU. DENIES ANY CP/SOB. UP AMBULATING IN ROOM. CALLED FOR TELE. ORIENTED TO NEW ROOM.
--- NOTE | 2018-07-02 05:10 | NUR ---
PT WAS A TRANSFER FROM ICU THIS SHIFT. HAS DENIED CHEST PAIN, NO RHYTHM CHANGES. REMAINS IN AFIB WITH CONTROLLED RATE. PLAN FOR DISCHARGE HOME TODAY. PT DENIES ANY C/O. CALL LIGHT IN REACH.
--- NOTE | 2018-07-02 07:25 | NUR ---
PT REPORTS H/A THIS AM REQ A TYLENOL FOR BREAKFAST PT ALSO STATED CP IS ABOUT 3-4/10 REQ HER PILLS WITH HER BREAKFAST STATED THAT KEEPS HER FROM HAVING NAUSEA HOPING TO GO HOME TODAY
--- NOTE | 2018-07-02 09:33 | NUR ---
pt reports some discomfort after breakfast belching and epigastric pain slight improvment from her h/a stated at home she takes 500mg tylenol vs 325mg stated she has seen gi dr villegas in the past for dialtion of the esophagus
[2018-07-02] MEDS ORDERED: LORA1 PO (10:21)
[2018-07-02] MEDS ORDERED: OMEPRAZOLE MAGN20 MG PO (10:22)
[2018-07-02] MEDS ORDERED: CARV25 PO (10:24)
[2018-07-02] MEDS ORDERED: Lisinopril2.5 MG PO (10:27)
[2018-07-02] MEDS ORDERED: Paxil20 MG PO (10:29)
--- NOTE | 2018-07-02 11:11 | NUR ---
DR BAILON BY TO SEE PT OK TO DISCHARGE HOME [facility]POINT[facility] TO CALL PT WITH F/U DISCUSSED WITH PT NO ACUTE CHANGES RX GIVEN AND OTHER CALLED TO MELANIE AWAITING RIDE
== END 2018-07-02 11:30 | disposition home or self-care (01) | DRG 287 ==
LOC: ER 15:47 → MEDS 18:20 → ERHOLD 18:20 → MEDS 06-27 09:30 → ICUE 06-27 09:30 → MEDS 06-27 09:30 → ICUE 06-28 08:19 → SURS 07-01 22:25
PROVIDERS: Hospitalist; Internal Medicine; Physician Assistant; ADMIT Hospitalist
PROC: B2111ZZ Fluoroscopy of Multiple Coronary Arteries using Low Osmolar Contrast (ICD-10-PCS; principal; 2018-06-29)
DX: I51.81 Takotsubo syndrome (principal); I48.0 Paroxysmal atrial fibrillation; E78.5 Hyperlipidemia, unspecified; Z96.653 Presence of artificial knee joint, bilateral; Z87.891 Personal history of nicotine dependence; R00.0 Tachycardia, unspecified; E66.9 Obesity, unspecified; Z68.35 Body mass index [BMI] 35.0-35.9, adult; F41.9 Anxiety disorder, unspecified; F41.0 Panic disorder [episodic paroxysmal anxiety]; I10 Essential (primary) hypertension
CPT/HCPCS: 36415; 71046; 80048; 80053; 80069; 84484; 85025; 85049; 85347; 85610; 85730; 93005; 93010; 93306; 93454; 96365; 96366; 96375; 96376; 99152; 99153; 99285-25; C1769; C1894; J0282; J1644; J2060; J2250; J2405; J3010; J7030; J7050; J7060; Q9967

== ENCOUNTER → 2018-11-23 | Outpatient (CLI) | payer OTHER ==
[~2018-11-23] MED LIST changes: +ELIQUIS5 MG PO; +LORA1 PO; +OMEPRAZOLE MAGN20 MG PO; +Paxil20 MG PO
[2018-11-23 18:20] LABS: BASOPHILS ABSOLUTE AUTO 0.04 K/mm3 (0.00-0.23); BASOPHILS PERCENT AUTO 1 % (0-2); EOSINOPHILS PERCENT AUTO 7 % (0-6); Hematocrit 35.5 % (33.0-51.0); Hemoglobin 11.5 g/dL (11.5-16.0); IMMATURE GRAN ABSOLUTE AUTO 0.01 K/mm3 (0.00-0.10); IMMATURE GRAN PERCENT AUTO 0 % (0-1); LYMPHOCYTES ABSOLUTE AUTO 1.31 K/mm3 (0.84-5.20); LYMPHOCYTES PERCENT AUTO 30 % (21-46); MONOCYTES ABSOLUTE AUTO 0.29 K/mm3 (0.16-1.47); MONOCYTES PERCENT AUTO 7 % (4-13); Mean Corpuscular HGB 30.7 pg (26.0-34.0); Mean Corpuscular HGB Conc 32.4 g/dL (31.5-36.5); Mean Corpuscular Volume 95 fL (80-100); NEUTROPHILS ABSOLUTE AUTO 2.44 K/mm3 (1.96-9.15); NEUTROPHILS PERCENT AUTO 56 % (41-73); Platelet Count 179 K/mm3 (150-400); RDW Coefficient Variation 13.2 % (11.7-14.2); RDW Standard Deviation 46.6 fL (35.1-46.3); Red Blood Cell Count 3.74 M/mm3 (3.80-5.20); White Blood Cell Count 4.39 K/mm3 (4.00-11.30)
[2018-11-23 18:21] LABS: Mean Platelet Volume 13.5 fL (9.1-12.4)
[2018-11-23 18:46] LABS: Alanine Aminotransfer (ALT/SGP 23 U/L (12-78); Albumin, Blood 3.8 g/dL (3.4-5.0); Albumin/Globulin Ratio 1.1 (0.8-1.8); Alk Phos 85 U/L (50-136); Anion Gap 8 mmol/L (6-16); Aspartate Aminotrans (AST/SGOT 19 U/L (12-37); Bilirubin, Total 0.5 mg/dL (0.1-1.0); Blood Urea Nitrogen 21 mg/dL (8-24); Bun/Creatinine Ratio 18.8 (12.0-20.0); CO2, Blood 23 mmol/L (21-32); Calcium, Blood 8.6 mg/dL (8.5-10.1); Chloride, Blood 109 mmol/L (98-108); Cholesterol 163 mg/dL (50-200); Creatinine, Blood 1.12 mg/dL (0.40-1.00); Globulin, Blood 3.6 g/dL (2.2-4.0); Glomerular Filtration Rate 52 (60-); Glucose, Blood 123 mg/dL (70-99); HDL Cholesterol 82 mg/dL (>39); LDL/HDL RATIO 0.8; Low Density Lipoprotein Chol 64 mg/dL (0-110); Potassium, Blood 4.4 mmol/L (3.5-5.5); Sodium, Blood 140 mmol/L (136-145); Total Protein, Blood 7.4 g/dL (6.4-8.2); Triglycerides 87 mg/dL (30-160); Very Low Density Lipoprot Chol 17 mg/dL (6-32)
== END ==
LOC: LAB SHORT 17:50 → LAB 17:50
PROVIDERS: Nurse Practitioner Family
DX: E78.5 Hyperlipidemia, unspecified (principal); I10 Essential (primary) hypertension
CPT/HCPCS: 80053; 80061; 85025

== ENCOUNTER → 2018-12-21 | Outpatient (CLI) | payer OTHER ==
[2018-12-21 19:33] LABS: BASOPHILS ABSOLUTE AUTO 0.04 K/mm3 (0.00-0.23); BASOPHILS PERCENT AUTO 1 % (0-2); EOSINOPHILS ABSOLUTE AUTO 0.29 K/mm3 (0.00-0.68); EOSINOPHILS PERCENT AUTO 7 % (0-6); Hematocrit 35.5 % (33.0-51.0); Hemoglobin 11.6 g/dL (11.5-16.0); IMMATURE GRAN ABSOLUTE AUTO 0.01 K/mm3 (0.00-0.10); IMMATURE GRAN PERCENT AUTO 0 % (0-1); LYMPHOCYTES ABSOLUTE AUTO 1.28 K/mm3 (0.84-5.20); LYMPHOCYTES PERCENT AUTO 29 % (21-46); MONOCYTES ABSOLUTE AUTO 0.32 K/mm3 (0.16-1.47); MONOCYTES PERCENT AUTO 7 % (4-13); Mean Corpuscular HGB Conc 32.7 g/dL (31.5-36.5); Mean Corpuscular Volume 92 fL (80-100); Mean Platelet Volume 12.9 fL (9.1-12.4); NEUTROPHILS ABSOLUTE AUTO 2.43 K/mm3 (1.96-9.15); NEUTROPHILS PERCENT AUTO 56 % (41-73); Platelet Count 197 K/mm3 (150-400); RDW Coefficient Variation 13.4 % (11.7-14.2); RDW Standard Deviation 45.2 fL (35.1-46.3); Red Blood Cell Count 3.87 M/mm3 (3.80-5.20); White Blood Cell Count 4.37 K/mm3 (4.00-11.30)
[2018-12-21 20:13] LABS: Uric Acid, Blood 4.4 mg/dL (2.6-6.0)
[2018-12-21 20:21] LABS: Alanine Aminotransfer (ALT/SGP 23 U/L (12-78); Albumin, Blood 4.1 g/dL (3.4-5.0); Albumin/Globulin Ratio 1.2 (0.8-1.8); Alk Phos 88 U/L (50-136); Anion Gap 5 mmol/L (6-16); Aspartate Aminotrans (AST/SGOT 15 U/L (12-37); Bilirubin, Total 0.5 mg/dL (0.1-1.0); Blood Urea Nitrogen 19 mg/dL (8-24); Bun/Creatinine Ratio 19.5 (12.0-20.0); CO2, Blood 25 mmol/L (21-32); Calcium, Blood 8.7 mg/dL (8.5-10.1); Chloride, Blood 109 mmol/L (98-108); Creatinine, Blood 0.98 mg/dL (0.40-1.00); Globulin, Blood 3.3 g/dL (2.2-4.0); Glomerular Filtration Rate >60 (60-); Glucose, Blood 94 mg/dL (70-99); Potassium, Blood 4.5 mmol/L (3.5-5.5); Sodium, Blood 139 mmol/L (136-145); Total Protein, Blood 7.4 g/dL (6.4-8.2)
== END | disposition home or self-care (01) ==
LOC: LAB 09:00 → LAB SHORT 09:00
PROVIDERS: Nurse Practitioner Family
DX: M10.00 Idiopathic gout, unspecified site (principal); N18.9 Chronic kidney disease, unspecified
CPT/HCPCS: 80053; 84550; 85025; 85651; 86038; 86431

== ENCOUNTER 2018-12-31 07:37 | Day surgery (SDC) | payer OTHER ==
[~2018-12-31] VITALS: Ht 160 cm; Wt 92.7 kg
--- NOTE | 2018-12-31 08:12 | NUR ---
12/31/18 0812 Negin Castro 2 IV ATTEMPTS BY JST FIRST ATTEMPT IN LEFT HAND INFILTRATED SECOND ATTEMPT IN RIGHT HAND SUCCESSFUL
== END 2018-12-31 09:56 | disposition home or self-care (01) ==
LOC: ORSCSDS 07:37
PROVIDERS: Podiatrist Foot & Ankle Surgery
PROC: 0QBN0ZZ Excision of Right Metatarsal, Open Approach (ICD-10-PCS; principal; 2018-12-31 09:00)
PROC: 0QBL0ZZ Excision of Right Tarsal, Open Approach (ICD-10-PCS; principal; 2018-12-31 09:00)
DX: M19.071 Primary osteoarthritis, right ankle and foot (principal); M25.774 Osteophyte, right foot; I10 Essential (primary) hypertension; I48.91 Unspecified atrial fibrillation; Z79.01 Long term (current) use of anticoagulants; J44.9 Chronic obstructive pulmonary disease, unspecified; Z87.891 Personal history of nicotine dependence; E66.01 Morbid (severe) obesity due to excess calories; Z68.36 Body mass index [BMI] 36.0-36.9, adult; Z79.899 Other long term (current) drug therapy
CPT/HCPCS: J0171; J0690; J1100; J1885; J2250; J2405; J2704; J3010; J7120

== ENCOUNTER → 2019-04-26 | Outpatient (CLI) | payer OTHER ==
[2019-04-26 18:01] LABS: BASOPHILS ABSOLUTE AUTO 0.04 K/mm3 (0.00-0.23); BASOPHILS PERCENT AUTO 1 % (0-2); EOSINOPHILS ABSOLUTE AUTO 0.29 K/mm3 (0.00-0.68); EOSINOPHILS PERCENT AUTO 7 % (0-6); Hematocrit 35.8 % (33.0-51.0); Hemoglobin 11.5 g/dL (11.5-16.0); IMMATURE GRAN PERCENT AUTO 0 % (0-1); LYMPHOCYTES ABSOLUTE AUTO 1.54 K/mm3 (0.84-5.20); LYMPHOCYTES PERCENT AUTO 36 % (21-46); MONOCYTES ABSOLUTE AUTO 0.29 K/mm3 (0.16-1.47); MONOCYTES PERCENT AUTO 7 % (4-13); Mean Corpuscular HGB 30.3 pg (26.0-34.0); Mean Corpuscular HGB Conc 32.1 g/dL (31.5-36.5); Mean Corpuscular Volume 94 fL (80-100); Mean Platelet Volume 12.8 fL (9.1-12.4); NEUTROPHILS ABSOLUTE AUTO 2.14 K/mm3 (1.96-9.15); NEUTROPHILS PERCENT AUTO 50 % (41-73); Platelet Count 181 K/mm3 (150-400); RDW Coefficient Variation 13.2 % (11.7-14.2); RDW Standard Deviation 45.7 fL (35.1-46.3)
[2019-04-26 18:52] LABS: Albumin, Blood 3.9 g/dL (3.4-5.0); Albumin/Globulin Ratio 1.1 (0.8-1.8); Bilirubin, Total 0.4 mg/dL (0.1-1.0); Bun/Creatinine Ratio 13.5 (12.0-20.0); Calcium, Blood 8.6 mg/dL (8.5-10.1); Creatinine, Blood 1.04 mg/dL (0.40-1.00); Globulin, Blood 3.4 g/dL (2.2-4.0); Magnesium, Blood 2.2 mg/dL (1.6-2.4); Potassium, Blood 4.5 mmol/L (3.5-5.5); Total Protein, Blood 7.3 g/dL (6.4-8.2)
== END | disposition home or self-care (01) ==
LOC: LAB SHORT 16:37 → LAB 16:37 → LAB FUT 03-29 10:40 → EDSTATUS 03-29 10:40
PROVIDERS: Nurse Practitioner Family
DX: K21.9 Gastro-esophageal reflux disease without esophagitis (principal); N18.9 Chronic kidney disease, unspecified
CPT/HCPCS: 80053; 83735; 85025

== ENCOUNTER → 2019-09-21 | Outpatient (CLI) | payer OTHER ==
[2019-09-21 17:44] LABS: BASOPHILS ABSOLUTE AUTO 0.05 K/mm3 (0.00-0.23); BASOPHILS PERCENT AUTO 1 % (0-2); EOSINOPHILS ABSOLUTE AUTO 0.22 K/mm3 (0.00-0.68); EOSINOPHILS PERCENT AUTO 4 % (0-6); Hemoglobin 11.5 g/dL (11.5-16.0); IMMATURE GRAN ABSOLUTE AUTO 0.02 K/mm3 (0.00-0.10); IMMATURE GRAN PERCENT AUTO 0 % (0-1); LYMPHOCYTES ABSOLUTE AUTO 1.49 K/mm3 (0.84-5.20); LYMPHOCYTES PERCENT AUTO 28 % (21-46); MONOCYTES ABSOLUTE AUTO 0.32 K/mm3 (0.16-1.47); MONOCYTES PERCENT AUTO 6 % (4-13); Mean Corpuscular HGB 30.6 pg (26.0-34.0); Mean Corpuscular HGB Conc 32.9 g/dL (31.5-36.5); Mean Corpuscular Volume 93 fL (80-100); Mean Platelet Volume 12.2 fL (9.1-12.4); NEUTROPHILS PERCENT AUTO 61 % (41-73); Platelet Count 208 K/mm3 (150-400); RDW Coefficient Variation 13.2 % (11.7-14.2); RDW Standard Deviation 45.1 fL (35.1-46.3); Red Blood Cell Count 3.76 M/mm3 (3.80-5.20)
[2019-09-21 18:12] LABS: Albumin, Blood 3.9 g/dL (3.4-5.0); Albumin/Globulin Ratio 1.1 (0.8-1.8); Bilirubin, Total 0.5 mg/dL (0.1-1.0); Bun/Creatinine Ratio 22.8 (12.0-20.0); Calcium, Blood 8.5 mg/dL (8.5-10.1); Creatinine, Blood 1.01 mg/dL (0.40-1.00); Globulin, Blood 3.6 g/dL (2.2-4.0); Potassium, Blood 4.3 mmol/L (3.5-5.5); Total Protein, Blood 7.5 g/dL (6.4-8.2)
== END | disposition home or self-care (01) ==
LOC: LAB SHORT 16:11 → LAB 16:11 → LAB FUT 09-20 10:45 → EDSTATUS 09-20 10:45
PROVIDERS: Nurse Practitioner Family
DX: N18.9 Chronic kidney disease, unspecified (principal)
CPT/HCPCS: 80053; 85025

== ENCOUNTER 2020-02-14 06:43 | Day surgery (SDC) | payer OTHER ==
[~2020-02-14] VITALS: Ht 160 cm; Wt 97.2 kg
[~2020-02-14 06:43] MED LIST changes: +Prinivil10 MG PO
[2020-02-14] MEDS ORDERED: Nortriptyline H50 MG (07:21)
== END 2020-02-14 08:45 | disposition home or self-care (01) ==
LOC: ORSCSDS 06:43
PROVIDERS: Internal Medicine Gastroenterology
PROC: 0DJ08ZZ Inspection of Upper Intestinal Tract, Via Natural or Artificial Opening Endoscopic (ICD-10-PCS; principal; 2020-02-14 08:00)
PROC: 0D757ZZ Dilation of Esophagus, Via Natural or Artificial Opening (ICD-10-PCS; principal; 2020-02-14 08:00)
DX: R10.13 Epigastric pain (principal); R13.10 Dysphagia, unspecified; K22.2 Esophageal obstruction; K44.9 Diaphragmatic hernia without obstruction or gangrene; I48.0 Paroxysmal atrial fibrillation; I10 Essential (primary) hypertension; Z87.891 Personal history of nicotine dependence; Z79.82 Long term (current) use of aspirin; Z79.899 Other long term (current) drug therapy
CPT/HCPCS: J0330; J0461; J2405; J2704; J7120

== ENCOUNTER → 2020-05-09 | Outpatient (CLI) | payer OTHER ==
[~2020-05-09] MED LIST changes: +Nortriptyline H50 MG; +Prednisone50 MG PO
[2020-05-09 19:51] LABS: BASOPHILS ABSOLUTE AUTO 0.05 K/mm3 (0.00-0.23); BASOPHILS PERCENT AUTO 1 % (0-2); EOSINOPHILS ABSOLUTE AUTO 0.26 K/mm3 (0.00-0.68); EOSINOPHILS PERCENT AUTO 5 % (0-6); Hematocrit 38.1 % (33.0-51.0); Hemoglobin 12.5 g/dL (11.5-16.0); IMMATURE GRAN ABSOLUTE AUTO 0.01 K/mm3 (0.00-0.10); IMMATURE GRAN PERCENT AUTO 0 % (0-1); LYMPHOCYTES ABSOLUTE AUTO 2.05 K/mm3 (0.84-5.20); LYMPHOCYTES PERCENT AUTO 39 % (21-46); MONOCYTES PERCENT AUTO 8 % (4-13); Mean Corpuscular HGB 29.7 pg (26.0-34.0); Mean Corpuscular HGB Conc 32.8 g/dL (31.5-36.5); Mean Corpuscular Volume 91 fL (80-100); Mean Platelet Volume 12.8 fL (9.1-12.4); NEUTROPHILS ABSOLUTE AUTO 2.48 K/mm3 (1.96-9.15); NEUTROPHILS PERCENT AUTO 47 % (41-73); Platelet Count 231 K/mm3 (150-400); RDW Coefficient Variation 13.1 % (11.7-14.2); RDW Standard Deviation 43.6 fL (35.1-46.3); Red Blood Cell Count 4.21 M/mm3 (3.80-5.20); White Blood Cell Count 5.25 K/mm3 (4.00-11.30)
[2020-05-09 20:09] LABS: Albumin, Blood 4.2 g/dL (3.4-5.0); Albumin/Globulin Ratio 1.1 (0.8-1.8); Alk Phos 91 U/L (50-136); Anion Gap 5 mmol/L (6-16); Aspartate Aminotrans (AST/SGOT 15 U/L (12-37); Bilirubin, Total 0.5 mg/dL (0.1-1.0); Blood Urea Nitrogen 15 mg/dL (8-24); CHOL/HDL RATIO 2.2; CO2, Blood 25 mmol/L (21-32); Calcium, Blood 9.2 mg/dL (8.5-10.1); Chloride, Blood 109 mmol/L (98-108); Cholesterol 187 mg/dL (50-200); Globulin, Blood 3.7 g/dL (2.2-4.0); Glucose, Blood 95 mg/dL (70-99); HDL Cholesterol 84 mg/dL (>39); Low Density Lipoprotein Chol 83 mg/dL (0-110); Potassium, Blood 4.3 mmol/L (3.5-5.5); Sodium, Blood 139 mmol/L (136-145); Total Protein, Blood 7.9 g/dL (6.4-8.2); Triglycerides 99 mg/dL (30-160); Very Low Density Lipoprot Chol 19 mg/dL (6-32)
[2020-05-09 20:20] LABS: Alanine Aminotransfer (ALT/SGP 19 U/L (12-78); Bun/Creatinine Ratio 14.9 (12.0-20.0); Creatinine, Blood 1.01 mg/dL (0.40-1.00); Glomerular Filtration Rate 58 (60-)
== END | disposition home or self-care (01) ==
LOC: LAB 16:44 → LAB SHORT 16:44
PROVIDERS: Nurse Practitioner Family
DX: Z11.59 Encounter for screening for other viral diseases (principal); Z11.4 Encounter for screening for human immunodeficiency virus [HIV]; E78.5 Hyperlipidemia, unspecified; I10 Essential (primary) hypertension
CPT/HCPCS: 80053; 80061; 85025; 86803

== ENCOUNTER 2020-06-14 15:08 | Emergency (ER) | payer OTHER ==
[~2020-06-14] VITALS: Ht 160 cm; Wt 97.5 kg
[~2020-06-14 15:08] MED LIST changes: -Prednisone50 MG PO
[2020-06-14 15:38] LABS: BASOPHILS ABSOLUTE AUTO 0.04 K/mm3 (0.00-0.23); BASOPHILS PERCENT AUTO 1 % (0-2); EOSINOPHILS ABSOLUTE AUTO 0.11 K/mm3 (0.00-0.68); EOSINOPHILS PERCENT AUTO 2 % (0-6); Hemoglobin 13.1 g/dL (11.5-16.0); IMMATURE GRAN ABSOLUTE AUTO 0.01 K/mm3 (0.00-0.10); IMMATURE GRAN PERCENT AUTO 0 % (0-1); LYMPHOCYTES ABSOLUTE AUTO 2.51 K/mm3 (0.84-5.20); LYMPHOCYTES PERCENT AUTO 35 % (21-46); MONOCYTES ABSOLUTE AUTO 0.93 K/mm3 (0.16-1.47); MONOCYTES PERCENT AUTO 13 % (4-13); Mean Corpuscular HGB 29.8 pg (26.0-34.0); Mean Corpuscular HGB Conc 32.8 g/dL (31.5-36.5); Mean Corpuscular Volume 91 fL (80-100); Mean Platelet Volume 11.9 fL (9.1-12.4); NEUTROPHILS ABSOLUTE AUTO 3.53 K/mm3 (1.96-9.15); NEUTROPHILS PERCENT AUTO 50 % (41-73); Platelet Count 252 K/mm3 (150-400); RDW Standard Deviation 43.6 fL (35.1-46.3); White Blood Cell Count 7.13 K/mm3 (4.00-11.30)
[2020-06-14] MEDS ORDERED: CYCL10 PO (15:39)
[2020-06-14] MEDS ORDERED: ACET325 PO (15:41)
[2020-06-14 15:57] LABS: Alanine Aminotransfer (ALT/SGP 31 U/L (12-78); Alk Phos 92 U/L (50-136); Anion Gap 11 mmol/L (6-16); Aspartate Aminotrans (AST/SGOT 34 U/L (12-37); Bilirubin, Total 0.3 mg/dL (0.1-1.0); Blood Urea Nitrogen 21 mg/dL (8-24); Bun/Creatinine Ratio 13.7 (12.0-20.0); CO2, Blood 19 mmol/L (21-32); Chloride, Blood 105 mmol/L (98-108); Creatinine, Blood 1.53 mg/dL (0.40-1.00); Globulin, Blood 4.2 g/dL (2.2-4.0); Glomerular Filtration Rate 36 (60-); Glucose, Blood 114 mg/dL (70-99); Potassium, Blood 3.4 mmol/L (3.5-5.5); Sodium, Blood 135 mmol/L (136-145); Total Protein, Blood 8.2 g/dL (6.4-8.2); Troponin I <0.015 ng/mL (0.000-0.040)
[2020-06-14] MEDS ORDERED: Prednisone50 MG PO (18:27)
== END 2020-06-14 18:55 | disposition home or self-care (01) ==
LOC: ER 15:08
PROVIDERS: Physician Assistant
DX: I48.91 Unspecified atrial fibrillation (principal); N17.9 Acute kidney failure, unspecified; E87.6 Hypokalemia; J98.01 Acute bronchospasm; Z79.899 Other long term (current) drug therapy
CPT/HCPCS: 36415; 71046; 80053; 83735; 83880; 84484; 85025; 93005; 93010; 94640; 96374; 99285-25; A9270; J7512

== ENCOUNTER → 2020-10-09 | Outpatient (CLI) | payer OTHER ==
[~2020-10-09] MED LIST changes: +Prednisone50 MG PO
[2020-10-09 16:06] LABS: Albumin, Blood 3.9 g/dL (3.4-5.0); Albumin/Globulin Ratio 1.3 (0.8-1.8); Bilirubin, Total 0.3 mg/dL (0.1-1.0); Bun/Creatinine Ratio 12.4 (12.0-20.0); Calcium, Blood 8.6 mg/dL (8.5-10.1); Creatinine, Blood 1.05 mg/dL (0.40-1.00); Globulin, Blood 3.1 g/dL (2.2-4.0); Phosphorus, Blood 3.5 mg/dL (2.5-4.9); Potassium, Blood 4.4 mmol/L (3.5-5.5)
[2020-10-11 15:12] LABS: A/G RATIO 1.3 (0.7-1.7); ALBUMIN 3.7 g/dL (2.9-4.4); ALPHA-1-GLOBULIN 0.2 g/dL (0.0-0.4); ALPHA-2-GLOBULIN 0.6 g/dL (0.4-1.0); BETA GLOBULIN 0.9 g/dL (0.7-1.3); GAMMA GLOBULIN 1.3 g/dL (0.4-1.8); IMMUNOGLOBULIN A, QN, SERUM 164 mg/dL (87-352); IMMUNOGLOBULIN G, QN, SERUM 1241 mg/dL (586-1602); IMMUNOGLOBULIN M, QN, SERUM 49 mg/dL (26-217); M-SPIKE 0.8 g/dL (Not Observed); PROTEIN, TOTAL, SERUM 6.7 g/dL (6.0-8.5)
== END | disposition home or self-care (01) ==
LOC: LAB SHORT 14:07 → LAB 14:07
PROVIDERS: Internal Medicine Hematology & Oncology
DX: D47.2 Monoclonal gammopathy (principal)
CPT/HCPCS: 80053; 82784; 84100; 84165; 86334

== ENCOUNTER → 2021-02-06 | Outpatient (CLI) | payer OTHER | END | disposition home or self-care (01) | LOC: LAB 11:07 → LAB SHORT 11:07 | DX: D48.5 Neoplasm of uncertain behavior of skin (principal) | CPT/HCPCS: 88305 ==

== ENCOUNTER 2021-09-10 20:00 | Emergency (ER) | payer OTHER ==
[~2021-09-10] VITALS: Ht 160 cm; Wt 88.5 kg
[2021-09-10 20:27] LABS: BASOPHILS ABSOLUTE AUTO 0.08 K/mm3 (0.00-0.23); BASOPHILS PERCENT AUTO 1 % (0-2); EOSINOPHILS ABSOLUTE AUTO 1.21 K/mm3 (0.00-0.68); EOSINOPHILS PERCENT AUTO 13 % (0-6); Hematocrit 37.2 % (33.0-51.0); Hemoglobin 12.6 g/dL (11.5-16.0); IMMATURE GRAN ABSOLUTE AUTO 0.03 K/mm3 (0.00-0.10); IMMATURE GRAN PERCENT AUTO 0 % (0-1); LYMPHOCYTES ABSOLUTE AUTO 2.26 K/mm3 (0.84-5.20); LYMPHOCYTES PERCENT AUTO 25 % (21-46); MONOCYTES ABSOLUTE AUTO 0.61 K/mm3 (0.16-1.47); MONOCYTES PERCENT AUTO 7 % (4-13); Mean Corpuscular HGB 30.2 pg (26.0-34.0); Mean Corpuscular HGB Conc 33.9 g/dL (31.5-36.5); Mean Corpuscular Volume 89 fL (80-100); Mean Platelet Volume 11.3 fL (9.1-12.4); NEUTROPHILS ABSOLUTE AUTO 4.83 K/mm3 (1.96-9.15); NEUTROPHILS PERCENT AUTO 54 % (41-73); Platelet Count 302 K/mm3 (150-400); RDW Coefficient Variation 13.2 % (11.7-14.2); RDW Standard Deviation 43.4 fL (35.1-46.3); Red Blood Cell Count 4.17 M/mm3 (3.80-5.20); White Blood Cell Count 9.02 K/mm3 (4.00-11.30)
[2021-09-10 20:41] LABS: Albumin, Blood 4.1 g/dL (3.4-5.0); Bilirubin, Total 0.5 mg/dL (0.1-1.0); Bun/Creatinine Ratio 15.8 (12.0-20.0); Calcium, Blood 9.1 mg/dL (8.5-10.1); Creatinine, Blood 0.95 mg/dL (0.40-1.00); Globulin, Blood 4.3 g/dL (2.2-4.0); Potassium, Blood 3.6 mmol/L (3.5-5.5); Total Protein, Blood 8.4 g/dL (6.4-8.2)
[2021-09-10] MEDS ORDERED: PRED20 PO (23:20)
== END 2021-09-11 00:01 | disposition home or self-care (01) ==
LOC: ER 20:00
PROVIDERS: Emergency Medicine
DX: T54.91XA Toxic effect of unspecified corrosive substance, accidental (unintentional), initial encounter (principal); J68.0 Bronchitis and pneumonitis due to chemicals, gases, fumes and vapors; Z88.8 Allergy status to other drugs, medicaments and biological substances; Z88.5 Allergy status to narcotic agent; I10 Essential (primary) hypertension; E78.5 Hyperlipidemia, unspecified; I48.91 Unspecified atrial fibrillation; Z79.01 Long term (current) use of anticoagulants; Z79.899 Other long term (current) drug therapy; Z87.891 Personal history of nicotine dependence
CPT/HCPCS: 71046; 80053; 83880; 84484; 85025; 93005; 93010; 94640; 94664; 96374; 99284-25; A9270; J2930

== ENCOUNTER → 2021-12-31 | Outpatient (CLI) | payer OTHER ==
[~2021-12-31] MED LIST changes: +PRED20 PO
[2021-12-31 15:21] LABS: Albumin, Blood 3.7 g/dL (3.4-5.0); Albumin/Globulin Ratio 1.1 (0.8-1.8); Bilirubin, Total 0.6 mg/dL (0.1-1.0); Calcium, Blood 8.8 mg/dL (8.5-10.1); Globulin, Blood 3.4 g/dL (2.2-4.0); Percent Saturation 18.7 % (15.0-50.0); Phosphorus, Blood 4.6 mg/dL (2.5-4.9); Potassium, Blood 5.5 mmol/L (3.5-5.5); Total Protein, Blood 7.1 g/dL (6.4-8.2)
== END | disposition home or self-care (01) ==
LOC: LAB SHORT 10:12
PROVIDERS: Internal Medicine Hematology & Oncology
DX: D47.2 Monoclonal gammopathy (principal); D50.8 Other iron deficiency anemias
CPT/HCPCS: 80053; 82728; 83540; 83550; 84100

== ENCOUNTER 2022-01-17 07:18 | Inpatient (IN) | payer OTHER ==
[~2022-01-17] VITALS: Ht 160 cm; Wt 91.4 kg
[2022-01-17] MEDS ORDERED: GABA300 PO (07:37)
[2022-01-17] MEDS ORDERED: Methocarbamol500 MG PO (07:38)
[2022-01-17 08:05] LABS: BASOPHILS ABSOLUTE AUTO 0.03 K/mm3 (0.00-0.23); BASOPHILS PERCENT AUTO 1 % (0-2); EOSINOPHILS PERCENT AUTO 2 % (0-6); Hematocrit 35.5 % (33.0-51.0); Hemoglobin 11.8 g/dL (11.5-16.0); IMMATURE GRAN ABSOLUTE AUTO 0.01 K/mm3 (0.00-0.10); IMMATURE GRAN PERCENT AUTO 0 % (0-1); LYMPHOCYTES ABSOLUTE AUTO 0.57 K/mm3 (0.84-5.20); LYMPHOCYTES PERCENT AUTO 10 % (21-46); MONOCYTES ABSOLUTE AUTO 0.29 K/mm3 (0.16-1.47); MONOCYTES PERCENT AUTO 5 % (4-13); Mean Corpuscular HGB 29.9 pg (26.0-34.0); Mean Corpuscular HGB Conc 33.2 g/dL (31.5-36.5); Mean Corpuscular Volume 90 fL (80-100); Mean Platelet Volume 11.3 fL (9.1-12.4); NEUTROPHILS ABSOLUTE AUTO 4.65 K/mm3 (1.96-9.15); NEUTROPHILS PERCENT AUTO 82 % (41-73); Platelet Count 312 K/mm3 (150-400); RDW Coefficient Variation 13.2 % (11.7-14.2); RDW Standard Deviation 43.7 fL (35.1-46.3); Red Blood Cell Count 3.95 M/mm3 (3.80-5.20); White Blood Cell Count 5.65 K/mm3 (4.00-11.30)
[2022-01-17 08:34] LABS: Albumin, Blood 3.7 g/dL (3.4-5.0); Bilirubin, Total 0.7 mg/dL (0.1-1.0); Bun/Creatinine Ratio 17.6 (12.0-20.0); Calcium, Blood 8.7 mg/dL (8.5-10.1); Creatinine, Blood 0.85 mg/dL (0.40-1.00); Globulin, Blood 3.8 g/dL (2.2-4.0); Total Protein, Blood 7.5 g/dL (6.4-8.2)
[2022-01-17 08:56] LABS: Influenza A, PCR NEGATIVE (NEGATIVE); Influenza B, PCR NEGATIVE (NEGATIVE); Resp Syncytial Virus, PCR NEGATIVE (NEGATIVE)
[2022-01-17 09:09] LABS: SARS-Cov-2 (COVID-19) PCR, MMC POSITIVE (NEGATIVE)
[2022-01-17 10:00] LABS: PCO2 Arterial 42.7 mmHg (35-45); PO2 Arterial 37.9 mmHg (80-100); pH Blood Arterial 7.25 (7.35-7.45)
--- NOTE | 2022-01-17 12:24 | NUR ---
REPORT RECIEVED FROM ER NURSE AT 1218.
[2022-01-17 12:34] LABS: Source, Urine Foley catheter
[2022-01-17 12:42] LABS: Bilirubin, Urine Neg (Neg); Blood, Urine Neg (Neg); Glucose Qualitative, Urine Neg (Neg); Ketones, Urine Neg (Neg); Leukocyte Esterase, Urine Neg (Neg); Nitrite, Urine Neg (Neg); Protein, Urine 1+ (Neg); Specific Gravity, Urine 1.015 (1.003-1.022); Urobilinogen, Urine NORM (Normal)
[2022-01-17 12:43] LABS: Appearance, Urine Clear (Clear); Color, Urine Yellow (P-Yellow)
[2022-01-17 13:30] LABS: Base Excess Venous -2.3 mmol/L; Bicarbonate Venous 23.4 mmol/L (24.0-30.0); PCO2 Venous 28.3 mmHg (38-42); pH Blood Venous 7.48 (7.34-7.37)
[2022-01-17 13:52] LABS: International Normalized Ratio 1.02; Prothrombin Time Results 10.7 Sec (9.7-11.5)
--- NOTE | 2022-01-17 16:38 | NUR ---
UPDATE PT REPORTED NAUSEA, ZOFRAN GIVEN PER EMAR, NO RELIEF. DR NOTIFIED, PHENERGAN 12.5 IV Q6 PRN ORDERED.
--- NOTE | 2022-01-17 18:25 | NUR ---
SHIFT SUMMARY PT ARRIVED TO PCU AROUND 1315 VIA RNORFOLK AND ON CPAP 8L/35%. PT WAS TRANSFERED FROM [facility] TO HOSPITAL BED VIA SLIDE SHEET. PT NAUSOUS AND DIAPHORETIC SINCE ARRIVAL TO UNIT, TREATED PER EMAR. PT REPORTS CHEST PAIN WHEN TAKING DEEP BREATHS BUT NO CHEST PAIN WHEN AT REST. PT ANXIOUS OF BREATHING EVEN WITH O2 SATS IN 90'S. PT REPORTS CHRONIC BACK PAIN, TREATED PER EMAR. CPAP REMOVED DUE TO PT NAUSEA AND DRY HEAVES, SATS REMAINED IN THE 90'S WHILE ON RA. 4L NC APPLIED LATER IN SHIFT PT BECAME ANXIOUS ABOUT BREATHING AND SATS BEGAN TO DROP TO HIGH 80'S, SATS RETURNED TO 90'S ON THE 4L NC. PT TROPONIN LEVELS TRENDING UP, NOTIFIED, CARDIOLOGY ANSWERING SERVICE NOTIFIED.
--- NOTE | 2022-01-17 20:00 | NUR ---
UPDATE CALL PALCED TO HOSPITALIST REGARDING PATIENT BECOMING INCREASINGLY ANXIOUS STATING "I CAN'T BREATHE", PATIENT WEARING 6L O2 WITH SPO2 AT 95%. ONE TIME DOSE OF ATIVAN RECIEVED.
[2022-01-18 01:12] LABS: PCO2 Arterial 27.9 mmHg (35-45); PO2 Arterial 108 mmHg (80-100); pH Blood Arterial 7.41 (7.35-7.45)
--- NOTE | 2022-01-18 02:00 | NUR ---
UPDATE/TRANSFER AROUND 2300 THIS RN INTO PATIENT ROOM PATIENT IS ATTEMPTING TO GET OUT OF BED, HR IS 150s-160s, AND PATIENT TACHYPNEIC ON NC. THIS RN PLACED PATIENT ON CPAP AND ADMINISTERED ATIVAN AND METOPROLOL PER EMAR. PATIENT ABLE TO TOLERATE CPAP FOR SHORT AMOUNT OF TIME, IS DIAPHORETIC AND CONTINUES TO BE ANXIOUS. CALL PLACED TO HOSPITALIST WITH UPDATE, ORDER FOR BIPAP, ABG AND OT DOSE OF SEROQUEL. SEE LAB RESULTS REGARDING ABG. PATIENT UNABLE TO MAINTAIN O2 SATURATION ON BIPAP AND IS UNABLE TO RELAX EVEN WITH ATIVAN ADMINISTRATION. IT QUALITY ASSURANCE ANALYST CALLED HOSPITALIST, ORDER RECIEVED FOR PRECEDEX AND TRANSFER TO ICU. BEDSIDE REPORT GIVEN TO ICU NURSE. PATIENT TRANSFERRED WITH ALL BELONGINGS.
--- NOTE | 2022-01-18 02:43 | NUR ---
PT TRANSFERRED TO ICU FROM PCU FOR AMS AND SATS DROPPED AND REQUIRED BIPAP AND PRECEDEX. PT VERY CONFUSED YELLING AT NURSES WHILE GETTING BEDSIDE REPORT. PT KEPT TRYING TO PULL OFF BIPAP MASK AND YELLING LET ME AND RUBBING FEET ON BED. PRECEDEX INITIATED. PT PULLED OUT PIV PRIOR TO COMING TO ICU ONLY HAD ONE WORKING LINE. NEW PIV STARTED IN RIGHT WRIST. PT NOT FOLLOWING COMMANDS, IS AGITATED, AND COMBATIVE AT TIMES. PT IN SOFT WRIST RESTRAINTS TO KEEP HER FROM PULLING OFF BIPAP AND PULLING OUT ANY MORE IV LINES. PT NOT REDIRECTABLE AT THIS TIME.
[2022-01-18 03:24] LABS: BASOPHILS PERCENT AUTO 0 % (0-2); EOSINOPHILS PERCENT AUTO 0 % (0-6); Hematocrit 33.8 % (33.0-51.0); Hemoglobin 11.1 g/dL (11.5-16.0); IMMATURE GRAN ABSOLUTE AUTO 0.01 K/mm3 (0.00-0.10); IMMATURE GRAN PERCENT AUTO 0 % (0-1); LYMPHOCYTES ABSOLUTE AUTO 0.87 K/mm3 (0.84-5.20); LYMPHOCYTES PERCENT AUTO 27 % (21-46); MONOCYTES ABSOLUTE AUTO 0.24 K/mm3 (0.16-1.47); MONOCYTES PERCENT AUTO 8 % (4-13); Mean Corpuscular HGB 29.5 pg (26.0-34.0); Mean Corpuscular HGB Conc 32.8 g/dL (31.5-36.5); Mean Corpuscular Volume 90 fL (80-100); Mean Platelet Volume 11.4 fL (9.1-12.4); NEUTROPHILS ABSOLUTE AUTO 2.05 K/mm3 (1.96-9.15); NEUTROPHILS PERCENT AUTO 65 % (41-73); Platelet Count 230 K/mm3 (150-400); RDW Coefficient Variation 13.4 % (11.7-14.2); Red Blood Cell Count 3.76 M/mm3 (3.80-5.20); White Blood Cell Count 3.17 K/mm3 (4.00-11.30)
[2022-01-18 03:51] LABS: Albumin, Blood 3.3 g/dL (3.4-5.0); Albumin/Globulin Ratio 0.9 (0.8-1.8); Bilirubin, Total 0.3 mg/dL (0.1-1.0); Bun/Creatinine Ratio 24.4 (12.0-20.0); Calcium, Blood 8.5 mg/dL (8.5-10.1); Creatinine, Blood 1.23 mg/dL (0.40-1.00); Globulin, Blood 3.5 g/dL (2.2-4.0); Magnesium, Blood 2.4 mg/dL (1.6-2.4); Potassium, Blood 3.5 mmol/L (3.5-5.5); Total Protein, Blood 6.8 g/dL (6.4-8.2)
--- NOTE | 2022-01-18 06:01 | NUR ---
END OF SHIFT SUMMARY PT TRANSFERRED OVER FROM PCU DUE TO SATS DECREASNG AND AMS. PT CONFUSED AND YELLING AT NURSES REQUESTING TO AND COMBATIVE. PT IN SOFT RESTRAINTS TO KEEP HER FROM PULLING AT LINES AND PULLING OFF BIPAP. PT PRECEDED AT 0.7 AND HEPARING AT 16. WILL GIVE BEDSIDE REPORT TO ONCOMING RN.
--- NOTE | 2022-01-18 07:24 | NUR ---
ASSUME CARE: I have assumed care of this patient.
--- NOTE | 2022-01-18 11:10 | NUR ---
PHONE CALL: update provided to patient's son, Jose Manuel, with patient's permission
[2022-01-18 12:54] LABS: Base Excess Venous 0.9 mmol/L; Bicarbonate Venous 23.9 mmol/L (24.0-30.0); PCO2 Venous 43.4 mmHg (38-42); pH Blood Venous 7.39 (7.34-7.37)
--- NOTE | 2022-01-18 18:39 | NUR ---
SHIFT SUMMARY: status changed to PCU this evening. echo performed this afternoon. NEURO: WNL; up to chair with minimal assistance RESPIRATORY: weaned down to 2L NC. Pt with productive, harsh cough. CARDIAC: afib on monitor. BPs stable. Pt gets tachycardic with any exertion. two 2.5 mg doses of lopressor given for tachycardia. GI/: nava removed per pt request. bladder scan 200mls at 1800. PSYCH/SOCIAL: WNL
--- NOTE | 2022-01-18 19:05 | NUR ---
Assumed care. Report received from nelson OLIVEIRA. Pt in in bed, A&O x4, c/o N/V, 4mg Zofran given per EMAR. HR elevated with any activity, 120-130s noted. VS otherwise stable, will continue to monitor.
[2022-01-19 03:40] LABS: Base Excess Venous -0.3 mmol/L; Bicarbonate Venous 24.6 mmol/L (24.0-30.0); PCO2 Venous 31.3 mmHg (38-42); pH Blood Venous 7.48 (7.34-7.37)
[2022-01-19 03:56] LABS: BASOPHILS ABSOLUTE AUTO 0.01 K/mm3 (0.00-0.23); BASOPHILS PERCENT AUTO 0 % (0-2); EOSINOPHILS PERCENT AUTO 0 % (0-6); Hemoglobin 11.4 g/dL (11.5-16.0); IMMATURE GRAN ABSOLUTE AUTO 0.03 K/mm3 (0.00-0.10); IMMATURE GRAN PERCENT AUTO 0 % (0-1); LYMPHOCYTES ABSOLUTE AUTO 1.37 K/mm3 (0.84-5.20); LYMPHOCYTES PERCENT AUTO 18 % (21-46); MONOCYTES ABSOLUTE AUTO 0.44 K/mm3 (0.16-1.47); MONOCYTES PERCENT AUTO 6 % (4-13); Mean Corpuscular HGB 29.3 pg (26.0-34.0); Mean Corpuscular HGB Conc 33.5 g/dL (31.5-36.5); Mean Corpuscular Volume 87 fL (80-100); Mean Platelet Volume 12.1 fL (9.1-12.4); NEUTROPHILS PERCENT AUTO 76 % (41-73); Platelet Count 282 K/mm3 (150-400); RDW Coefficient Variation 13.4 % (11.7-14.2); RDW Standard Deviation 42.5 fL (35.1-46.3); Red Blood Cell Count 3.89 M/mm3 (3.80-5.20); White Blood Cell Count 7.65 K/mm3 (4.00-11.30)
[2022-01-19 04:18] LABS: Bun/Creatinine Ratio 42.9 (12.0-20.0); Calcium, Blood 8.4 mg/dL (8.5-10.1); Creatinine, Blood 1.12 mg/dL (0.40-1.00); Potassium, Blood 3.4 mmol/L (3.5-5.5)
--- NOTE | 2022-01-19 06:47 | NUR ---
Shift summary. Pt rested in bed throughout shift, A&O, on RA. Pt c/o nausea and vomiting periodically. Pt up to bedside commode twice, voided 375 mls urine. No acute events overnight, see shift assessment for further details. Will continue to monitor and report off to dayshift RN.
--- NOTE | 2022-01-19 12:29 | NUR ---
PROVIDER UPDATE: Dr Adamson called and informed of pt's home regimen with [place] 5/325 for chronic neck pain. Telephone order obtained.
--- NOTE | 2022-01-19 18:45 | NUR ---
SHIFT SUMMARY: NEURO: wnl CARDIAC: afib with rates 100-130. Rates increase with any exertional activty, then quickly lower below 120 after she returns to bed and rests. RESPIRATORY: harsh cough with coarse lung sounds. SpO2 >95% on RA GI/: compazine suppository given this morning for nausea and vomiting. Pt was able to tolerate most of her AM meds with a few exceptions; see MAR. pt just requested her home dose of protonix. Will pass on to manager shift. PSYCH/SOCIAL: pt updating family via phone herself.
--- NOTE | 2022-01-19 19:00 | NUR ---
Assumed care. Report received from dayshift RN. Pt resting in bed, on room air. Alert and oriented, call light within reach. VS stable, no acute needs. Will continue to monitor.
--- NOTE | 2022-01-20 01:38 | NUR ---
Transferred pt to PCU at approximately 0120. Report given to WINDOW SHADE RING SEWER. VS stable at time of transfer.
[2022-01-20 06:39] LABS: BASOPHILS ABSOLUTE AUTO 0.01 K/mm3 (0.00-0.23); BASOPHILS PERCENT AUTO 0 % (0-2); EOSINOPHILS ABSOLUTE AUTO 0.01 K/mm3 (0.00-0.68); EOSINOPHILS PERCENT AUTO 0 % (0-6); Hematocrit 34.8 % (33.0-51.0); Hemoglobin 11.8 g/dL (11.5-16.0); IMMATURE GRAN ABSOLUTE AUTO 0.05 K/mm3 (0.00-0.10); IMMATURE GRAN PERCENT AUTO 0 % (0-1); LYMPHOCYTES ABSOLUTE AUTO 1.44 K/mm3 (0.84-5.20); LYMPHOCYTES PERCENT AUTO 11 % (21-46); MONOCYTES ABSOLUTE AUTO 0.81 K/mm3 (0.16-1.47); MONOCYTES PERCENT AUTO 6 % (4-13); Mean Corpuscular HGB 29.4 pg (26.0-34.0); Mean Corpuscular HGB Conc 33.9 g/dL (31.5-36.5); Mean Corpuscular Volume 87 fL (80-100); Mean Platelet Volume 12.2 fL (9.1-12.4); NEUTROPHILS ABSOLUTE AUTO 10.97 K/mm3 (1.96-9.15); NEUTROPHILS PERCENT AUTO 83 % (41-73); Platelet Count 281 K/mm3 (150-400); RDW Coefficient Variation 13.3 % (11.7-14.2); RDW Standard Deviation 42.1 fL (35.1-46.3); Red Blood Cell Count 4.01 M/mm3 (3.80-5.20); White Blood Cell Count 13.29 K/mm3 (4.00-11.30)
[2022-01-20 06:54] LABS: Albumin, Blood 3.6 g/dL (3.4-5.0); Bilirubin, Total 0.8 mg/dL (0.1-1.0); Bun/Creatinine Ratio 39.6 (12.0-20.0); Creatinine, Blood 0.88 mg/dL (0.40-1.00); Globulin, Blood 3.6 g/dL (2.2-4.0); Potassium, Blood 3.1 mmol/L (3.5-5.5); Total Protein, Blood 7.2 g/dL (6.4-8.2)
--- NOTE | 2022-01-20 07:18 | NUR ---
FIT SUMMARY: PT TRANSFERED FROM ICU AT APPROXIMATELY 0130. RECEIVED REPORT FROM VIRGIE OLIVEIRA. PT TRANSFERE VIA WHEELCHAIR. ABLE TO STAND AND PIVOT TO BED WITH MODERATE SOB, SUBSIDES AFTER RESTING IN BED. HR HAS BEEN SINUS TACH 100-110'S, OCCAIONAL INCREASE TO 160 WHEN UP TO BSC BUT THEN QUICKLY RETURNS TO LOW 100. MEDICATED WITH IV METROPROLO X 1 FOR SUSTAINED HR > 120. 02 SATS > 90% ON RA. NO COMPLAINTS OF SOB. NO COMPLAINTS OF NAUSEA.
--- NOTE | 2022-01-20 14:47 | NUR ---
Pt transferred to PCU during noc. New EKG changes noted this am & Drs have opted for stress test prior to d/c rather than as an OP as previously planned. Symptomatically, pt is improved and doing well, per provider's PN.
--- NOTE | 2022-01-20 17:21 | NUR ---
SHIFT SUMMARY PT REMAINS ALERT AND OREINTED. O2 SATS REMAIN ABOVE 90% ON RA. HR HAS BEEN AFIB 100-120'S AND UP TO 140'S WITH ACTIVITY. BP STABLE. PT HAS DENIED ANY PAIN. PT REPORTS MILD NAUSEA AND POOR APPETITE. PT ABLE TO TRANSFER INDEPENDENTLY TO [facility] NEEDED. PT HAD FIRST PORTION OF STRESS TEST TODAY AND WILL HAVE THE SECOND PORTION TOMORROW. WILL CONTINUE TO MONITOR AND REPORT TO ONCOMING RN
[2022-01-21 05:08] LABS: Albumin, Blood 3.5 g/dL (3.4-5.0); Bilirubin, Total 0.6 mg/dL (0.1-1.0); Bun/Creatinine Ratio 45.3 (12.0-20.0); Calcium, Blood 8.3 mg/dL (8.5-10.1); Creatinine, Blood 0.84 mg/dL (0.40-1.00); Globulin, Blood 3.6 g/dL (2.2-4.0); Potassium, Blood 3.8 mmol/L (3.5-5.5); Total Protein, Blood 7.1 g/dL (6.4-8.2)
--- NOTE | 2022-01-21 05:59 | NUR ---
SHIFT SUMMARY: A&OX4. NO COMPLAINTS OF SOB OR CHEST PAIN. DENIES NAUSEA. MEDICATED FOR PAIN IN ABDOMEN, SEE EMAR, WITH GOOD RESULT. HR MAINTAINING IN THE LOW 100'S WITH OCCASIONAL INCREASE INTO THE 120'S WITH ACTIVITY. O2 SATS > 92% ON RA. NO ACUTE EVENTS DURING SHIFT.
--- NOTE | 2022-01-21 15:44 | NUR ---
UPDATE PT CALLS NURSE INTO THE ROOM DUE TO SHORTNESS OF BREATH. SATS >90%. RR 30'S. LS CLEAR THROUGHOUT. PT PLACED ON 2L NC FOR WORK OF BREATHING. PT STARTS COMPLAINING OF CP AND TINGLING IN HER LEGS. EKG DONE. DR. CASTANEDA CALLED AND AT BEDSIDE. ORDERS FOR REVERSAL FROM STRESS TEST. PT BECOMES NAUSOUS AND MEDICATED PER EMAR. ORDERS FROM DR. CASTANEDA TO GIVE 1MG ATIVAN. PT MEDICATED ORDERED. PT ABLE TO RELAX AND LAY BACK. PT STATES CHEST PAIN IN NOW GONE
--- NOTE | 2022-01-21 18:09 | NUR ---
ASSUMED CARE OF PT AT 16OO. PT IS PLEASANT AND A&O. PT HAD NO C/O PAIN. PT RESTING IN ROOM AND STATED SHE WAS NOT FEELING HUNGRY FOR DINNER AT THAT TIME. BED IN LOWEST POSITOIN AND CALL LIGHT IN REACH.
--- NOTE | 2022-01-21 18:41 | NUR ---
DR. CASTANEDA NOTIFIED OF STRESS TEST RESULTS. NO NEW ORDERS GIVEN. DR CASTANEDA STATED THAT DR FERGUSON WOULD SEE PT TOMORROW.
--- NOTE | 2022-01-22 05:18 | NUR ---
SHIFT SUMMARY PT A&Ox4, CALLS AND COMMUNICATES NEEDS APPROPRIATELY. TITRATED PT FROM 2L O2 DOWN TO RA, SpO2> 92%. PT TOLERATED ACTIVITY ON RA WITHOUT DESATURATING. AFIB 90-110's AT REST, GETTING UP TO 140's WITH ACTIVITY. PT IND TO BSC TO VOID. PT WITH NO REPORTS OF CP/SOB. PT REPORTED MILD NAUSEA AT START OF SHIFT, MANAGED PER EMAR. NO ACUTE EVENTS THIS SHIFT. WILL REPORT TO DAY SHIFT RN.
[2022-01-22 08:14] LABS: Hematocrit 36.9 % (33.0-51.0); Hemoglobin 12.6 g/dL (11.5-16.0); Mean Platelet Volume 12.4 fL (9.1-12.4); Platelet Count 293 K/mm3 (150-400)
[2022-01-22 08:35] LABS: International Normalized Ratio 1.3; Prothrombin Time Results 13.4 Sec (9.7-11.5)
--- NOTE | 2022-01-22 12:42 | NUR ---
IV INFILTERATING. STOPPED HEPARIN DRIP, CONTACTED [facility] @8226. WILL FOLLOW UP WHEN NEW IV IS PLACED.
--- NOTE | 2022-01-22 13:19 | NUR ---
CALLED DR GOODWIN GING TO MED SCHEDULED AND LOW B/P, SEE EMAR. WILL HOLD MED UNTIL DR FREEMAN. WILL CONTINUE TO MONITOR.
--- NOTE | 2022-01-22 17:40 | NUR ---
SHIFT SUMMARY- PT ON RA. A&O X3. APPETITE OK. PT STARTED ON HEPARIN DRIP. N/V, MILD VOMITING JUST PHELM AND GAGGING. DR ORDERED STAT ANGIOGRAM FOLLOWING LOW B/P READING. PT STABLE AFTER PROCEDURE, STILL ON RA. PT RETURNED FROM PROCEDURE AROUND 1530. TR BAND IN PLACE, SITE CLEAR OF BRUISING OR BLEEDING. SUPPORT WRAP INTACT. TR BAND DEFLAT START 17:30, REMOVED 2CC. SITE SOFT, CLEAR OF WEEPING. WILL CONTINUE TO MONITOR. CALL LIGHT REACH.
--- NOTE | 2022-01-22 19:32 | NUR ---
CARE ASSUMPTION THIS RN TO BEDSIDE, REPORT RECEIVED FROM PRIOR RN ON DAY SHIFT. PT STATES UPPER ABD PAIN IS IMPROVED AND CURRENTLY AT 4/10, STATES PAIN IS CRAMPING AND ACHING. DENIES HAVING A BM SINCE BEING ADMITTED, DENIES CONSTIPATION, STATES SHE HAS NOT BEEN EATING VERY WELL. AOX4, BREATHING APPEARS EVEN, TACHYPNEA NOTED, PT STATES SOME SOB WHILE LAYING FLAT THAT COMES AND GOES. TR BAND IN PLACE, PER DAY RN 6 CC'S REMOVED SO FAR. THIS RN REMOVES ANOTHER 2 CC'S, SOME BRUISING NOTED UNDER TR BAND, NO VISIBLE BLEEDING. PT DENIES NUMBNESS/TINGLING. PT HAS SEVERAL EPISODES OF BELCHING THIS RN IS TYPING THIS NOTE. PT DENIES CP AT THIS TIME.
--- NOTE | 2022-01-23 00:45 | NUR ---
PT UPDATE TR BAND OFF, SITE INTACT, DRESSING PLACED, PULSE PRESENT. NO BLEEDING NOTED. PT REMINDED OF PRECAUTIONS. VERBALIZES UNDERSTANDING, PLACED BACK IN ARMBOARD. PT C/O SEVERE ABD PAIN IN UPPER ABD THAT IS WORSENING IN INTENSITY.
--- NOTE | 2022-01-23 01:12 | NUR ---
PT UPDATE DR Lawson ([employer]IDENT [employer]) CALLED AND NOTIFIED OF PT INCREASING ABD PAIN AND BEING TAKEN OFF OF HER HOME OMEPRAZOLE. PT REPORTS ABD PAIN HAS INCREASINGLY WORSENED SINCE BEING HERE IN HOSPITAL. ORDER FOR 40 MG OF FAMOTIDINE PO AND CARAFATE TO BE ADMIN OT.
[2022-01-23 05:25] LABS: Bun/Creatinine Ratio 41.6 (12.0-20.0); Calcium, Blood 8.5 mg/dL (8.5-10.1); Creatinine, Blood 1.01 mg/dL (0.40-1.00); Potassium, Blood 4.3 mmol/L (3.5-5.5)
--- NOTE | 2022-01-23 08:22 | NUR ---
SHIFT SUMMARY PT AOX4, APPEARED DROWSY T/O NIGHT. DENIED CP. AFIB 110'S, 130-140'S WHEN UP TO BEDSIDE COMMODE. TACHYPNEIC, SATS 96-98% RA. OCCASIONAL DRY SOUNDING COUGH. C/O UPPER ABD PAIN THAT SHE STATES SHE HAS HAD SINCE BEING ADMITTED TO THE HOSPITAL. ORDER OBTAINED FOR PEPCID AND CARAFATE. PT STATES DECREASE IN PAIN FOLLOWING DOSE OF NORCO AND OT DOSE MEDS FROM RESIDENT. PT TR BAND REMOVED FROM R RADIAL, NO BLEEDING AT SITE NOTED.
--- NOTE | 2022-01-23 15:58 | NUR ---
SHIFT SUMMARY PATIENT A&OX4. PATIENT WITH EPISODE OF BELCHING/NAUSEA AND ABD PAIN THIS AM. MEDICATED PER EMAR WITH GOOD RELIEF REPORTED BY PATIENT. MD CHILDS WITH BOWEL CARE MEDS, PATIENT STATED SHE WAS ABLE TO HAVE A SMALL BOWEL MOVEMENT. NO FURTHER EPISODES OF ABD PAIN/CRAMPING SINCE. VITALS STABLE. PATIENT SBA TO TOILET. PATIENT MANAGING ADL'S INDEPENDENTLY AT THIS TIME. CALLS APPROPRIATELY. PATINET CONTINUES TO BE IN AFIB WITH HR 80-90S AT REST CURRENTLY. HR INCREASES TO 120-140S WITH ACTIVITY. PATIENT APPEARS DYSPNEIC WITH EXERTION; DENIES CP AND SOB AT REST. PATIENT APPEARS TO BE RESTING WITH BED IN LOWEST POSITION AND CALL LIGHT WITHIN REACH. WILL CONTINUE TO MONITOR UNTIL SHIFT CHANGE AT 1900.
[2022-01-24 04:15] LABS: Bun/Creatinine Ratio 32.7 (12.0-20.0); Creatinine, Blood 1.13 mg/dL (0.40-1.00); Potassium, Blood 4.6 mmol/L (3.5-5.5)
--- NOTE | 2022-01-24 05:57 | NUR ---
Shift Summary Pt drowsy and sleeping at start of shift. This RN to bedside to awaken pt, AOx4, up to bathroom to urinate w/o significant dyspnea. Breathing is tachypneic however, unlabored. Sats 96% on RA. HTN SBP 140's, diastolic 110's. Per day shift, started on Metoprolol PO today and Lasix admin prior to this shift start. Pt states at start of shift Abd pain is 3/10 and controlled. O2 sats down to 90% on RA while asleep this AM, this RN to bedside, pt placed on 2 L via NC, left on 1 L after returning to bed from bathroom. Sats 96% on 1 L O2 via NC. Pt denied CP t/o night. HTN with wide MAP continues from prior night monitor.
--- NOTE | 2022-01-24 09:08 | NUR ---
ASSUMPTION OF CARE/ PATIENT UPDATE THIS RN ASSUMED CARE OF PATIENT AT 0700. REPORT TAKEN FROM LULU OLIVEIRA. PATIENT WITH STABLE VITALS THIS AM. DENIED STOMACH/ABD CRAMPING. COMPLAINTS OF HEARTBURN AFTER BREAKFAST; MEDICATED WITH TUMS PER EMAR. PATIENT VERBALIZED HAVING MORE OF AN APPETITE THIS AM, AND WAS ABLE TO EAT 50% OF HER MEAL; SUPPLEMENT OFFERED BUT REFUSED AT THIS TIME. PHYSICAL THERAPY TO BEDSIDE THIS AM TO EVAL PATIENT. THERAPY STATED TO THIS RN THAT PATIENT IS SAFE TO DISCHARGE HOME WITH HOME HEALTH ON BOARD FOR THERAPY. PATIENT VERBALIZES TO THIS RN THAT SHE IS READY FOR DISCHARGE. PATIENT APPEARS TO BE SLEEPING IN BED WITH EQUAL CHEST RISE/FALL NOTED. BED IN LOWEST POSITION AND CALL LIGHT WITHIN REACH.
[2022-01-24] MEDS ORDERED: DECADRON6 M1 PO (13:00)
[2022-01-24] MEDS ORDERED: DOCU100 PO (13:01)
[2022-01-24] MEDS ORDERED: FURO20 PO (13:02)
[2022-01-24] MEDS ORDERED: TOPROL XL25 MG PO (13:02)
[2022-01-24] MEDS ORDERED: MIRALAX17 GM PO (13:10)
[2022-01-24] MEDS ORDERED: POTA10T PO (13:11)
[2022-01-24] MEDS ORDERED: Norco 5-325 Ta1 EACH PO (13:12)
[2022-01-24] MEDS ORDERED: Calcium Carbon500 MG PO (13:14)
[2022-01-24] MEDS ORDERED: Acetaminophen650 M1 PO (13:14)
--- NOTE | 2022-01-24 14:44 | NUR ---
DISCHARGE NOTE PATIENT GIVEN DISCHARGE PACKET WITH INFORMATION ABOUT FOLLOW UP APPOINTMENTS WITH PRIMARY AND WITH CARDIOLOGY. PATIENT GIVEN HARD SCRIPT FOR NORCO; COPY MADE AND PLACED IN CHART. PATIENT WITH STABLE VITALS. PATIENT EDUCATED ON NEW MEDICATIONS AND GIVEN COPY OF DISCONTINUED AND NEW MEDICATIONS, WELL WHAT MEDICATIONS TO CONTINUE. PATIENT VERBALIZED UNDERSTANDING. PATIENT SIGNED DISCHARGE PAPERWORK AND VERBALIZED UNDERSTANDING AND DENIED HAVING ANY FURTHER QUESTIONS. PATIENT ASSISTED TO GET DRESSED. POWERGLIDE REMOVED AND WNL. TELEMETRY REMOVED. VITALS STABLE AT TIME OF REMOVAL. PATIENT CURRENTLY WAITING FOR RIDE FROM FAMILY IN ROOM. COVID PRECAUTIONS CONTINUE TO BE IN PLACE.
== END 2022-01-24 15:37 | disposition home or self-care (01) | DRG 177 ==
LOC: ER 07:18 → PCU 11:22 → ICUW 11:22 → PCU 11:22 → ICUW 01-18 01:42 → PCU 01-20 01:20
PROVIDERS: Emergency Medicine; Internal Medicine; Nurse Practitioner Acute Care; Student in an Organized Health Care Education/Training Program; ADMIT Hospitalist
PROC: 8E0ZXY6 Isolation (ICD-10-PCS; 2022-01-17)
PROC: 4A023N7 Measurement of Cardiac Sampling and Pressure, Left Heart, Percutaneous Approach (ICD-10-PCS; principal; 2022-01-22)
PROC: B2111ZZ Fluoroscopy of Multiple Coronary Arteries using Low Osmolar Contrast (ICD-10-PCS; 2022-01-22)
PROC: 3E0333Z Introduction of Anti-inflammatory into Peripheral Vein, Percutaneous Approach (ICD-10-PCS; 2022-01-22)
PROC: XW033E5 Introduction of Remdesivir Anti-infective into Peripheral Vein, Percutaneous Approach, New Technology Group 5 (ICD-10-PCS; 2022-01-22)
PROC: XW0DXM6 Introduction of Baricitinib into Mouth and Pharynx, External Approach, New Technology Group 6 (ICD-10-PCS; 2022-01-22)
PROC: 5A09357 Assistance with Respiratory Ventilation, Less than 24 Consecutive Hours, Continuous Positive Airway Pressure (ICD-10-PCS; 2022-01-22)
DX: U07.1 COVID-19 (principal); I21.A1 Myocardial infarction type 2; J96.01 Acute respiratory failure with hypoxia; J12.82 Pneumonia due to coronavirus disease 2019; I50.31 Acute diastolic (congestive) heart failure; I51.81 Takotsubo syndrome; N17.9 Acute kidney failure, unspecified; E87.4 Mixed disorder of acid-base balance; N18.30 Chronic kidney disease, stage 3 unspecified; F41.9 Anxiety disorder, unspecified; F32.A Depression, unspecified; I48.91 Unspecified atrial fibrillation; Z90.710 Acquired absence of both cervix and uterus; Z79.899 Other long term (current) drug therapy; Z79.01 Long term (current) use of anticoagulants; Z88.5 Allergy status to narcotic agent; Z88.8 Allergy status to other drugs, medicaments and biological substances; Z89.511 Acquired absence of right leg below knee; K21.9 Gastro-esophageal reflux disease without esophagitis; I12.9 Hypertensive chronic kidney disease with stage 1 through stage 4 chronic kidney disease, or unspecified chronic kidney disease; E78.00 Pure hypercholesterolemia, unspecified; E87.6 Hypokalemia; R11.2 Nausea with vomiting, unspecified; R74.01 Elevation of levels of liver transaminase levels; T38.0X5A Adverse effect of glucocorticoids and synthetic analogues, initial encounter
CPT/HCPCS: 0241U; 36415; 36600; 51702; 71045; 71260; 76937; 78452; 80048; 80053; 82803; 83690; 83735; 83880; 84484; 85014; 85018; 85025; 85049; 85347; 85610; 85730; 86140; 93005; 93010; 93017; 93306; 93458; 94660; 94760; 94762; 96361-59; 96374-59; 96375-59; 97116; 97161; 99152; 99153; 99291-25; A9270; A9500; C1751; C1769; C1887; C1894; C9113; C9399; J0248; J0280; J0706; J1100; J1644; J1885; J1940; J2060; J2250; J2405; J2550; J2765; J2785; J3010; J7030; J7050; Q9967

== ENCOUNTER 2022-02-08 09:43 | Emergency (ER) | payer OTHER ==
[~2022-02-08] VITALS: Ht 160 cm; Wt 87.5 kg
[~2022-02-08 09:43] MED LIST changes: +Acetaminophen650 M1 PO; +Calcium Carbon500 MG PO; +DECADRON6 M1 PO; +DOCU100 PO; +FURO20 PO; +GABA300 PO; +MIRALAX17 GM PO; +Methocarbamol500 MG PO; +Norco 5-325 Ta1 EACH PO; +POTA10T PO; +TOPROL XL25 MG PO
[2022-02-08 10:50] LABS: BASOPHILS ABSOLUTE AUTO 0.02 K/mm3 (0.00-0.23); BASOPHILS PERCENT AUTO 0 % (0-2); EOSINOPHILS ABSOLUTE AUTO 0.14 K/mm3 (0.00-0.68); EOSINOPHILS PERCENT AUTO 2 % (0-6); Hematocrit 32.9 % (33.0-51.0); Hemoglobin 11.1 g/dL (11.5-16.0); IMMATURE GRAN ABSOLUTE AUTO 0.03 K/mm3 (0.00-0.10); IMMATURE GRAN PERCENT AUTO 0 % (0-1); LYMPHOCYTES ABSOLUTE AUTO 1.37 K/mm3 (0.84-5.20); LYMPHOCYTES PERCENT AUTO 19 % (21-46); MONOCYTES ABSOLUTE AUTO 0.31 K/mm3 (0.16-1.47); MONOCYTES PERCENT AUTO 4 % (4-13); Mean Corpuscular HGB 29.9 pg (26.0-34.0); Mean Corpuscular HGB Conc 33.7 g/dL (31.5-36.5); Mean Corpuscular Volume 89 fL (80-100); Mean Platelet Volume 10.5 fL (9.1-12.4); NEUTROPHILS ABSOLUTE AUTO 5.29 K/mm3 (1.96-9.15); NEUTROPHILS PERCENT AUTO 74 % (41-73); Platelet Count 229 K/mm3 (150-400); RDW Coefficient Variation 14.7 % (11.7-14.2); RDW Standard Deviation 47.1 fL (35.1-46.3); Red Blood Cell Count 3.71 M/mm3 (3.80-5.20); White Blood Cell Count 7.16 K/mm3 (4.00-11.30)
[2022-02-08 11:10] LABS: Albumin, Blood 3.5 g/dL (3.4-5.0); Albumin/Globulin Ratio 0.9 (0.8-1.8); Bilirubin, Total 0.8 mg/dL (0.1-1.0); Bun/Creatinine Ratio 20.7 (12.0-20.0); Calcium, Blood 9.3 mg/dL (8.5-10.1); Creatinine, Blood 0.87 mg/dL (0.40-1.00); Globulin, Blood 3.7 g/dL (2.2-4.0); Potassium, Blood 3.9 mmol/L (3.5-5.5); Total Protein, Blood 7.2 g/dL (6.4-8.2)
== END 2022-02-08 13:48 | disposition home or self-care (01) ==
LOC: ER 09:43
PROVIDERS: Physician Assistant
DX: I50.9 Heart failure, unspecified (principal); I51.81 Takotsubo syndrome; E78.5 Hyperlipidemia, unspecified; I48.91 Unspecified atrial fibrillation; Z88.8 Allergy status to other drugs, medicaments and biological substances; Z88.5 Allergy status to narcotic agent; Z79.899 Other long term (current) drug therapy; Z79.01 Long term (current) use of anticoagulants; Z87.891 Personal history of nicotine dependence; Z86.16 Personal history of COVID-19
CPT/HCPCS: 36415; 71046; 80053; 83690; 83880; 84484; 85025; 93005; 93010; J1940

== ENCOUNTER → 2022-03-03 | Outpatient (CLI) | payer OTHER | LOC: LAB SHORT 16:29 → LAB 16:29 | DX: N39.0 Urinary tract infection, site not specified (principal) | CPT/HCPCS: 87086 ==

== ENCOUNTER 2022-03-07 05:45 | Day surgery (SDC) | payer OTHER ==
[~2022-03-07] VITALS: Wt 190.0 kg
--- NOTE | 2022-03-07 08:09 | NUR ---
PT VERBALIZED UNDERSTANDING OF WRITTEN AND VERBAL D/C INST. PT SB/SR 55/60 BPM ON D/C. IV REMOVED. PT TAKEN OUT OF HRT CENTER VIA W/C.
== END 2022-03-07 22:54 | disposition home or self-care (01) ==
LOC: MHTC 05:45
DX: R00.2 Palpitations (principal); I48.91 Unspecified atrial fibrillation; I25.2 Old myocardial infarction; E78.5 Hyperlipidemia, unspecified; K21.9 Gastro-esophageal reflux disease without esophagitis; I51.81 Takotsubo syndrome; E66.9 Obesity, unspecified; I11.0 Hypertensive heart disease with heart failure; I50.9 Heart failure, unspecified; F41.9 Anxiety disorder, unspecified; F32.A Depression, unspecified; Z79.01 Long term (current) use of anticoagulants; Z88.8 Allergy status to other drugs, medicaments and biological substances; Z88.5 Allergy status to narcotic agent; Z68.35 Body mass index [BMI] 35.0-35.9, adult
CPT/HCPCS: 92960; 93005; 93010; J2704; J7030

== ENCOUNTER → 2022-07-01 | Outpatient (CLI) | payer OTHER ==
[~2022-07-01] MED LIST changes: +BENEFIBER236 G1 PO
[2022-07-02 07:55] LABS: Candida species (DNA Probe) Negative (NEGATIVE); G. vaginalis (DNA Probe) Positive (NEGATIVE); T. vaginalis (DNA Probe) Negative (NEGATIVE)
== END | disposition home or self-care (01) ==
LOC: LAB SHORT 13:44 → LAB 13:44
PROVIDERS: Obstetrics & Gynecology
DX: N76.0 Acute vaginitis (principal)
CPT/HCPCS: 87480; 87510; 87660

== ENCOUNTER 2022-09-29 09:20 | Day surgery (SDC) | payer OTHER ==
[2022-09-29] VITALS (16 sets, daily range): BP systolic 121–177; BP diastolic 53–80
[~2022-09-29] VITALS: Ht 160 cm; Wt 91.3 kg
[2022-09-29] MEDS ORDERED: Vitamin D1000 UNI1 (11:55)
[2022-09-29] MEDS ORDERED: CALCIUM 500 MG1 EAC2 (11:55)
--- NOTE | 2022-09-29 12:09 | NUR ---
Ambulatory in Day SurgeryPre-Op teaching done. Pt verbalizes understanding. Patient confirms NPO status and agrees with scheduled surgery. History, Chart, Medications and Allergies reviewed before start of procedure.
--- NOTE | 2022-09-29 12:11 | NUR ---
LATE ENTRY: 1109: PT'S PULSE PER PULSE OX IS 29-36 BPM. PT ERIC CHEST PAIN , SOB OR FEELING ANY DIFFERENT THAN USUAL. [address] HR ACTUALLY DOUBLED PERIPHERAL RATE. STRIP PRINTED AND REVIEWED W/DR. CANTU. OK TO PROCEED. NO NEW ORDERS
--- NOTE | 2022-09-29 18:28 | NUR ---
SHIFT SUMMARY POD0 R ADAM, A/OX4, VSS, TOLERATING PO, PAIN WELL MANAGED, PT OUT OF PACU TOO LATE TO WORK WITH THERAPY BUT DISCUSSED GETTING HER UP AT SOME TIME TODAY WHILE EDUCATING ON THE IMPORTANCE OF EARLY AMBULATION FOR HER RECOVERY AND HEAD GOLF COACH OUTCOME. NO ACUTE EVENTS THIS SHIFT, CALL LIGHT IN REACH, WILL REPORT TO ONCOMING NOC RN.
[2022-09-30 02:55] VITALS: BP 160/88
--- NOTE | 2022-09-30 04:47 | NUR ---
SHIFT SUMMARY A/O X4- POD1 R TOTAL HIP REPLACEMENT, PRINEO DRESSING C/D/I. AMBULATING WELL W/ SBA, FWW, AND GB. PAIN MANAGED W/ PO PAIN MEDICATIONS. VOIDING WELL AND TOLERATING PO INTAKE W/ NO REPORT OF N/V. VITAL SIGNS STABLE. PLEASANT AND COOPERATIVE W/ CARE. WILL REPORT TO ONCOMING RN.
[2022-09-30 05:34] LABS: Bun/Creatinine Ratio 23.5 (12.0-20.0); Calcium, Blood 8.3 mg/dL (8.5-10.1); Creatinine, Blood 0.94 mg/dL (0.40-1.00); Magnesium, Blood 2.1 mg/dL (1.6-2.4); Potassium, Blood 4.5 mmol/L (3.5-5.5)
[2022-09-30 06:03] LABS: BASOPHILS ABSOLUTE AUTO 0.01 K/mm3 (0.00-0.23); BASOPHILS PERCENT AUTO 0 % (0-2); EOSINOPHILS PERCENT AUTO 0 % (0-6); Hematocrit 29.7 % (33.0-51.0); Hemoglobin 10.1 g/dL (11.5-16.0); IMMATURE GRAN ABSOLUTE AUTO 0.03 K/mm3 (0.00-0.10); IMMATURE GRAN PERCENT AUTO 0 % (0-1); LYMPHOCYTES ABSOLUTE AUTO 1.13 K/mm3 (0.84-5.20); LYMPHOCYTES PERCENT AUTO 11 % (21-46); MONOCYTES ABSOLUTE AUTO 0.71 K/mm3 (0.16-1.47); MONOCYTES PERCENT AUTO 7 % (4-13); Mean Corpuscular HGB 30.8 pg (26.0-34.0); Mean Corpuscular Volume 91 fL (80-100); Mean Platelet Volume 11.7 fL (9.1-12.4); NEUTROPHILS ABSOLUTE AUTO 8.79 K/mm3 (1.96-9.15); NEUTROPHILS PERCENT AUTO 82 % (41-73); Platelet Count 209 K/mm3 (150-400); RDW Coefficient Variation 13.6 % (11.7-14.2); RDW Standard Deviation 45.5 fL (35.1-46.3); Red Blood Cell Count 3.28 M/mm3 (3.80-5.20); White Blood Cell Count 10.67 K/mm3 (4.00-11.30)
[2022-09-30 07:51] VITALS: BP 158/67
--- NOTE | 2022-09-30 09:45 | NUR ---
DISCHARGE SUMMARY POD1 R ADAM, A/OX4, VSS, TOLERATING PO, PAIN WELL MANAGED PER EMAR, VOIDING WELL, CLEARED THERAPY, INCISION C/D/I WITH PRINEO DRESSING IN PLACE, DISTAL PULSES STRONG BILATERALLY, NO SKIN BREAKDOWN NOTED. IV REMOVED PRIOR TO DISCHARGE. DISCUSSED DISCHARGE INSTRUCTIONS WITH HER INCLUDING HOME CARE, MEDICATIONS, AND FOLLOW UP APPOINTMENTS. NO QUESTIONS AT THIS TIME, PT ESCORTED OUT VIA WC TO HER SON WHO IS TAKING HER HOME.
== END 2022-09-30 09:45 | disposition home or self-care (01) ==
LOC: ORSCMMR 09:20 → ORD 13:15 → ORSCMMR 13:15 → SURS 16:13 → ORSCMMR 09-30 09:45 → ORD 10-10 07:30
PROVIDERS: Orthopaedic Surgery
PROC: 0SR90JA Replacement of Right Hip Joint with Synthetic Substitute, Uncemented, Open Approach (ICD-10-PCS; principal; 2022-09-29 13:15)
DX: M16.11 Unilateral primary osteoarthritis, right hip (principal); I48.91 Unspecified atrial fibrillation; K21.9 Gastro-esophageal reflux disease without esophagitis; E78.5 Hyperlipidemia, unspecified; I10 Essential (primary) hypertension; I51.81 Takotsubo syndrome; Z79.01 Long term (current) use of anticoagulants; Z79.899 Other long term (current) drug therapy; Z87.891 Personal history of nicotine dependence
CPT/HCPCS: 36415; 72170; 80048; 83735; 85025; 97110; 97116; 97162; A9270; C1713; C1776; J0171; J0690; J0735; J1100; J1885; J2250; J2370; J2405; J2704; J2795; J3010; J7120

== ENCOUNTER → 2022-11-17 | Outpatient (CLI) | payer OTHER ==
[~2022-11-17] MED LIST changes: +CALCIUM 500 MG1 EAC2; +Vitamin D1000 UNI1
== END | disposition home or self-care (01) ==
LOC: LAB 16:53 → LAB SHORT 16:53
DX: R30.0 Dysuria (principal)
CPT/HCPCS: 87086

== ENCOUNTER → 2023-05-05 | Outpatient (CLI) | payer OTHER ==
[2023-05-05 19:09] LABS: Cholesterol 176 mg/dL (50-200); Ferritin, Serum 9 ng/mL (8-252); Glutamyl Transpeptidase, GGT 28 U/L (5-55); HDL Cholesterol 86 mg/dL (>39); Iron Serum 108 ug/dL (50-170); LDL/HDL RATIO 0.8; Low Density Lipoprotein Chol 72 mg/dL (0-110); Magnesium, Blood 2.2 mg/dL (1.6-2.4); Percent Saturation 23.5 % (15.0-50.0); Total Iron Binding Capacity 459 ug/dL (250-450); Triglycerides 92 mg/dL (30-160); Very Low Density Lipoprot Chol 18 mg/dL (6-32)
[2023-05-05 19:29] LABS: Thyroid Stimulating Hormone 0.997 uIU/mL (0.360-4.800)
[2023-05-07 07:13] LABS: A/G RATIO 1.7 (1.2-2.2); BILIRUBIN, TOTAL 0.3 mg/dL (0.0-1.2); CALCIUM, SERUM 8.9 mg/dL (8.7-10.3); CREATININE, SERUM 1.07 mg/dL (0.57-1.00); GLOBULIN, TOTAL 2.7 g/dL (1.5-4.5); POTASSIUM, SERUM 5.6 mmol/L (3.5-5.2); PROTEIN, TOTAL, SERUM 7.2 g/dL (6.0-8.5)
[2023-05-07 13:04] LABS: TISSUE TRANSGLUTAMINAS TTG,IGA <1.02 FLU (0.00-4.99)
[2023-05-07 13:05] LABS: DEAMIDATED GLIADIN PEPTIDE,IGA <0.72 FLU (0.00-4.99)
[2023-05-07 21:05] LABS: DEAMIDATED GLIADIN PEPTIDE,IGG <0.56 FLU (0.00-4.99); TISSUE TRANSGLUTAMINASE AB,IGG <0.82 FLU (0.00-4.99)
== END | disposition home or self-care (01) ==
LOC: LAB SHORT 16:13 → LAB 16:13
PROVIDERS: Family Medicine
DX: D50.9 Iron deficiency anemia, unspecified (principal); E78.5 Hyperlipidemia, unspecified; R10.12 Left upper quadrant pain; R25.2 Cramp and spasm
CPT/HCPCS: 80053; 80061; 82607; 82728; 82746; 82977; 83540; 83550; 83735; 84443; 86258; 86364

== ENCOUNTER → 2023-05-21 | Outpatient (CLI) | payer OTHER ==
[2023-05-23 23:40] LABS: PANCREATIC ELASTASE,FECAL 260 ug/g (>=100)
== END ==
LOC: LAB SHORT 10:29 → LAB 10:29
PROVIDERS: Family Medicine
DX: R10.12 Left upper quadrant pain (principal)
CPT/HCPCS: 82653

== ENCOUNTER 2023-07-28 08:08 | Day surgery (SDC) | payer OTHER ==
[~2023-07-28] VITALS: Ht 160 cm; Wt 88.2 kg
[~2023-07-28 08:08] MED LIST changes: +Lidocaine HCl 2% 10 ML SDA ONE
[2023-07-28] MEDS ORDERED: CeFAZolin Sodium 2,000 MG VIAL ONE (08:11)
[2023-07-28] MEDS ORDERED: NS 50 ML IV ONE (08:12)
[2023-07-28] MEDS ORDERED: Lactated Ringer's 1,000 ML IV ONE (08:20)
[2023-07-28] MEDS ORDERED: propofoL 60 ML IV ONE (08:26)
[2023-07-28] MEDS ORDERED: FAMO40 PO (08:29)
--- NOTE | 2023-07-28 09:21 | NUR ---
07/28/23 0921 Bailey Lagunas PT ON [facility], RIGHT ARM ON [place] STAND WITH GEL PADDING, LEFT ARM ON [employer] BOARD.
[2023-07-28 10:37] VITALS: BP 115/90
== END 2023-07-28 10:28 | disposition home or self-care (01) ==
LOC: ORSCSDS 08:08
DX: M65.322 Trigger finger, left index finger (principal); M65.321 Trigger finger, right index finger; I48.91 Unspecified atrial fibrillation; I42.9 Cardiomyopathy, unspecified; K21.9 Gastro-esophageal reflux disease without esophagitis; I25.2 Old myocardial infarction; E78.5 Hyperlipidemia, unspecified; I10 Essential (primary) hypertension; Z87.891 Personal history of nicotine dependence; Z79.01 Long term (current) use of anticoagulants; Z79.899 Other long term (current) drug therapy
CPT/HCPCS: J0690; J2001; J2704

== ENCOUNTER → 2023-08-06 | Outpatient (CLI) | payer OTHER ==
[~2023-08-06] MED LIST changes: +FAMO40 PO; -Lidocaine HCl 2% 10 ML SDA ONE
[2023-08-06 11:22] LABS: BASOPHILS ABSOLUTE AUTO 0.03 K/mm3 (0.00-0.23); BASOPHILS PERCENT AUTO 1 % (0-2); EOSINOPHILS ABSOLUTE AUTO 0.19 K/mm3 (0.00-0.68); EOSINOPHILS PERCENT AUTO 5 % (0-6); Hematocrit 36.9 % (33.0-51.0); Hemoglobin 12.3 g/dL (11.5-16.0); Mean Corpuscular HGB 29.9 pg (26.0-34.0); Mean Corpuscular HGB Conc 33.3 g/dL (31.5-36.5); Mean Corpuscular Volume 90 fL (80-100); Mean Platelet Volume 11.2 fL (9.1-12.4); Platelet Count 252 K/mm3 (150-400); RDW Coefficient Variation 14.4 % (11.7-14.2); RDW Standard Deviation 46.9 fL (35.1-46.3); Red Blood Cell Count 4.11 M/mm3 (3.80-5.20); White Blood Cell Count 3.92 K/mm3 (4.00-11.30)
[2023-08-06 11:25] LABS: Bun/Creatinine Ratio 17.3 (12.0-20.0); Creatinine, Blood 1.04 mg/dL (0.40-1.00); Potassium, Blood 4.1 mmol/L (3.5-5.5)
[2023-08-06 11:46] LABS: IMMATURE GRAN ABSOLUTE AUTO 0.01 K/mm3 (0.00-0.10); IMMATURE GRAN PERCENT AUTO 0 % (0-1); LYMPHOCYTES PERCENT AUTO 49 % (21-46); MONOCYTES ABSOLUTE AUTO 0.33 K/mm3 (0.16-1.47); MONOCYTES PERCENT AUTO 8 % (4-13); NEUTROPHILS ABSOLUTE AUTO 1.46 K/mm3 (1.96-9.15); NEUTROPHILS PERCENT AUTO 37 % (41-73)
== END | disposition home or self-care (01) ==
LOC: LAB 11:15 → LAB SHORT 11:15
PROVIDERS: Physician Assistant Surgical
DX: R42 Dizziness and giddiness (principal)
CPT/HCPCS: 80048; 83880; 84484; 85025; 85379

== ENCOUNTER → 2024-04-04 | Outpatient (CLI) | payer OTHER ==
[2024-04-04 17:24] LABS: BASOPHILS ABSOLUTE AUTO 0.03 K/mm3 (0.00-0.23); BASOPHILS PERCENT AUTO 1 % (0-2); EOSINOPHILS ABSOLUTE AUTO 0.17 K/mm3 (0.00-0.68); EOSINOPHILS PERCENT AUTO 3 % (0-6); Hemoglobin 11.9 g/dL (11.5-16.0); IMMATURE GRAN ABSOLUTE AUTO 0.01 K/mm3 (0.00-0.10); IMMATURE GRAN PERCENT AUTO 0 % (0-1); LYMPHOCYTES ABSOLUTE AUTO 1.63 K/mm3 (0.84-5.20); LYMPHOCYTES PERCENT AUTO 28 % (21-46); MONOCYTES ABSOLUTE AUTO 0.33 K/mm3 (0.16-1.47); MONOCYTES PERCENT AUTO 6 % (4-13); Mean Corpuscular HGB 29.5 pg (26.0-34.0); Mean Corpuscular HGB Conc 33.1 g/dL (31.5-36.5); Mean Corpuscular Volume 89 fL (80-100); NEUTROPHILS ABSOLUTE AUTO 3.56 K/mm3 (1.96-9.15); NEUTROPHILS PERCENT AUTO 62 % (41-73); Platelet Count 279 K/mm3 (150-400); RDW Coefficient Variation 13.5 % (11.7-14.2); RDW Standard Deviation 44.5 fL (35.1-46.3); Red Blood Cell Count 4.03 M/mm3 (3.80-5.20); White Blood Cell Count 5.73 K/mm3 (4.00-11.30)
[2024-04-04 17:54] LABS: Iron Serum 72 ug/dL (50-170)
[2024-04-04 17:55] LABS: Alanine Aminotransfer (ALT/SGP 18 U/L (12-78); Alk Phos 96 U/L (50-136); Anion Gap 10 mmol/L (3-11); Aspartate Aminotrans (AST/SGOT 16 U/L (12-37); Bilirubin, Total 0.6 mg/dL (0.1-1.0); Blood Urea Nitrogen 19 mg/dL (8-24); Bun/Creatinine Ratio 20.9 (12.0-20.0); CHOL/HDL RATIO 1.8; CO2, Blood 26 mmol/L (21-32); Calcium, Blood 9.5 mg/dL (8.5-10.1); Chloride, Blood 107 mmol/L (98-108); Cholesterol 173 mg/dL (50-200); Creatinine, Blood 0.91 mg/dL (0.40-1.00); Ferritin, Serum 14 ng/mL (8-252); Globulin, Blood 4.1 g/dL (2.2-4.0); Glomerular Filtration Rate 68 (60-); Glucose, Blood 107 mg/dL (70-99); HDL Cholesterol 98 mg/dL (>39); LDL/HDL RATIO 0.6; Low Density Lipoprotein Chol 57 mg/dL (0-110); Percent Saturation 16.3 % (15.0-50.0); Potassium, Blood 4.3 mmol/L (3.5-5.5); Sodium, Blood 139 mmol/L (136-145); Total Iron Binding Capacity 443 ug/dL (250-450); Total Protein, Blood 8.1 g/dL (6.4-8.2); Triglycerides 90 mg/dL (30-160); Very Low Density Lipoprot Chol 18 mg/dL (6-32)
== END ==
LOC: LAB 16:11 → LAB SHORT 16:11
PROVIDERS: Nurse Practitioner Family
DX: I10 Essential (primary) hypertension (principal); D50.8 Other iron deficiency anemias; E55.9 Vitamin D deficiency, unspecified; R35.0 Frequency of micturition
CPT/HCPCS: 80053; 80061; 82306; 82728; 83540; 83550; 84443; 85025; 87086